=== PATIENT | female | born 1950 | race Caucasian/White ===

== ENCOUNTER 2020-09-13 16:21 | Inpatient (IN) ==
--- OUTSIDE RECORDS SUMMARY | 2020-09-13 16:24 | External Medical Summary | Continuity of Care Document ---
:1950 Author Name Gay Gómez Address Unavailable Unavailable , Care Team Providers Name Role Phone Unavailable Unavailable Unavailable Kristine Gómez Unavailable [email or web address], [email or web address] Unavailable Unavailable Unavailable Unavailable Unavailable Problems Hemiparesis (342.90) (G81.90) Benign essential hypertension (401.1) (I10) Depression (311) (F32.9) Type 2 diabetes mellitus (250.00) (E11.9) Seborrheic dermatitis of scalp (690.18) (L21.9) Gait disturbance (781.2) (R26.9) Mixed hyperlipidemia (272.2) (E78.2) Stroke syndrome Allergies and Adverse Reactions Amoxicillin TABS (Allergy) Penicillins (Allergy) Shellfish-derived Products (Allergy) Medications metFORMIN HCl - 500 MG Oral Tablet; TAKE 1 TABLET TWIC E DAILY. Rico Carmona Start: 29-Aug-2012 Quantity: 180 Refills: 1 Simvastatin 20 MG Oral Tablet; TAKE 1 TABLET DAILY AT BEDTIME. Rico Carmona Start: 29-Aug-2012 Quantity: 90 Refills: 1 Lisinopril-hydroCHLOROthiazide 20-12.5 MG Oral Tablet; TAKE 1 TABLET DAILY. Rico Carmnoa Start: 29-Aug-2012 Quantity: 90 Refills: 1 Clobetasol Propionate 0.05 % External So lution; APPLY AND GENTLY MASSAGE INTO AFFECTED AREA(S) TWICE DAILY. Rico Start: 29-Aug-2012 Refills: 0 Aspirin EC 81 MG Oral Tablet Delayed Release; TAKE 1 TABLET DAILYRico Velazquez Start: 29-Aug-2012 Quantity: 30 Refills: 5 Citalopram Hydrobromide 20 MG Oral Tablet; TAKE 1 TABL ET DAILY. Rico Carmona Start: 29-Aug-2012 Quantity: 90 Refills: 1 Procedures History of Aneurysm Repair Intracranial Simple Carotid Status: Completed Circulation Immunizations Influenza On: 29-Aug-2012 12:56 Lot #: [id number], [employer] Pneumococcal polysaccharide vaccine, 23 valent On: 3 15:57 Lot #: [id number], [employer] Social History - Smoking Status Ex-smoker Plan of Treatment Planned Observations Planned Goals not documented Results No Known Results Results not documented
[2020-09-13] MEDS ORDERED: DEXAMETHASONE SOD INJ 10 MG/ML VIAL IV ONE (16:36)
[2020-09-13] MEDS ORDERED: SODIUM CHLORIDE 0.9% 1000ML 500 ML IV ONE (16:36)
--- NOTE | 2020-09-13 16:41 | Emergency Department Note ---
Impression & Plan Acute respiratory failure with hypoxia, Weakness, COVID-19 ED Provider Note Provider: Nate Richard MD DATE OF SERVICE:09/13/2020 CHIEF COMPLAINT: Weakness fatigue HISTORY OF PRESENT ILLNESS: Patient is a 70-year-old female history of hypertension, hyperlipidemia, and diabetes presenting here today via ambulance from home due to weakness and shortness of breath. Patient states her symptoms started on approximately September 01 and have worsened significantly last several days significantly weak not eating and drinking much. Patient denies significant shortness of breath but says he is very weak and fatigued. Denies significant pain at this point. Reports he has been having fevers including today. Patient denies being tested for coronavirus but is concerned that she may have it. Denies any recent falls. Patient states she feels bit thirsty but does not have an appetite and has lost of taste and smell. EMS states they found the patient 78% on room air and on nonrebreather improved 90%. Her also came via ambulance for somewhat similar complaints. REVIEW OF SYSTEMS: A total of 10 review of systems was obtained and negative except as stated above in the HPI. PAST MEDICAL HISTORY: As noted above MEDICATIONS: Reviewed home medication list that comes the patient on aspirin SOCIAL HISTORY: Lives at home with , former smoker and glaucoma PHYSICAL EXAM: GENERAL: alert and oriented laying on stretcher appears significantly fatigued on a nonrebreather Head: normocephalic and atraumatic EYES: No injection, discharge or icterus. NECK: Trachea midline. Supple. ENT: Mucous membranes pink but slightly dry LUNGS: Airway patent. No retractions. Mild tachypnea. HEART: Regular rate and rhythm. No chest wall tenderness ABDOMEN: Soft and non-tender, without guarding or rebound. SKIN: Acyanotic, warm, dry, without rashes EXTREMITIES: Without swelling, tenderness or deformity NEUROLOGICAL: No focal deficits. No aphasia. No facial droop or slurred speech very weekend quiet speech. EK bpm normal sinus rhythm without PVC or PAC there is some baseline artifact on the EKG. No acute ST segment elevation noted with some inferior T wave inversions. Normal QTC QRS. CONTINUOUS CARDIAC MONITORING: was ordered and showed a heart rate of 92 bpm in normal sinus rhythm Patient's laboratory studies and imaging reviewed. Differential includes Infection, dehydration, metabolic abnormality, hypo/hyperglycemia, electrolyte disturbance, anemia, hypoxia, cardiac sources, intracerebral event, toxicologic, neurologic, as well as other pathologies. IMPRESSION/MEDICAL DECISION MAKING: Patient presents complaint weakness and fatigue found to be hypoxic. Significantly hypoxic on a nonrebreather 90% with some work of breathing and given this started on high flow oxygen. Covid test was sent as high suspicion. X-ray basic labs cultures lactate were sent. VBG was sent as well as type and screen. Given dexamethasone given high clinical suspicion for coronavirus and her significant respiratory oxygen requirement. Benign abdomen I doubt acute intra-abdominal catastrophe. D-dimer was sent as well as CRP for inflammatory markers. Given some fluid hydration via IV given her decreased intake. Afebrile here at this time upon initial evaluation. Chest x-ray with diffuse opacities per my review and radiology report for viral pneumonia. ABG without significant abnormality. Mild leukopenia of 2.15. No anemia. D-dimer is elevated and CTA will be ordered to evaluate for possible underlying PE. C-reactive protein mildly elevated. Lipase within normal limits thus without evidence of pancreatitis. Flu was negative. Troponin undetec table. A type and screen was sent for possible need for convalescent plasma given her illness. Patient was updated and more comfortable on the high flow oxygen but still satting around 90% on 40 L at 100%. Patient requires admission given her significant hypoxia related to coronavirus. Hospitalist team was contacted. DIAGNOSIS: Acute hypoxic respiratory failure, weakness, COVID-19 DISPOSITION: Hospitalist will evaluate for inpatient admission Patient was agreeable with this plan. Critical Care I have personally spent 40 minutes of critical care time in the direct management of this patient. This includes bedside care, interpretation of diagnostic studies, and testing, discussion with consultants, patient, and other required patient management activities. These 40 minutes is in excess of all separately billable procedures. Past Med/Surg History Medical History Cerebral aneurysm rupture 1998 s/p clipping Diabetes mellitus type 2, diet-controlled Hereditary hemochromatosis HLD (hyperlipidemia) HTN (hypertension) NAFLD (nonalcoholic fatty liver disease) Surgical History Hx of cholecystectomy Family History Mother Glaucoma Social History Smoking Status: Former smoker Hx Alcohol Use: No Feels Safe at Home: Yes Allergies Allergies Allergy/AdvReac Type Severity Reaction Status Date / Time shellfish derived Allergy Intermediate ithcing Verified 09/13/20 19:32 Penicillins Allergy Mild RASH, Verified 09/13/20 19:32 pruritis Home Meds Home Medications Medication Instructions Recorded Confirmed citalopram 20 mg PO DAILY 09/13/20 09/13/20 lisinopril 20 mg PO DAILY 09/13/20 09/13/20 Results & Data (ED) Vital Signs Vital Signs - 24 hr 09/13/20 16:27 09/13/20 16:45 09/13/20 16:59 Temperature 37.1 C Temperature Source Oral Pulse Rate 88 87 Pulse Rate [Apical] Pulse Rate from SpO2 Sensor 90 88 Respiratory Rate 24 23 Respiratory Effort / Characteristics Short of Breath Short of Breath Respiratory Depth Normal Normal Respiratory Pattern Regular Blood Pressure 152/89 H 132/76 Blood Pressure Mean 113 107 Blood Pressure Position Sitting Pulse Oximetry 90 93 Oxygen Delivery Method High Flow Nasal Cannula High Flow Nasal Cannula Oxygen Flow Rate 40 40 Fraction of Inspired Oxygen Sepsis Recent Fever Within 48 Hours No Sepsis New/Unexplained Change in Mental Status N/A Sepsis Action Taken by Nursing No Action Required 09/13/20 17:00 09/13/20 17:15 09/13/20 17:30 Temperature Temperature Source Pulse Rate 83 84 79 Pulse Rate [Apical] 80 Pulse Rate from SpO2 Sensor 83 82 79 Respiratory Rate 24 21 24 Respiratory Effort / Characteristics Spontaneous Respiratory Depth Respiratory Pattern Blood Pressure 137/70 119/77 123/65 Blood Pressure Mean 90 93 90 Blood Pressure Position Pulse Oximetry 89 L 91 91 Oxygen Delivery Method High Flow Nasal Cannula High Flow Nasal Cannula High Flow Nasal Cannula Oxygen Flow Rate 40 40 40 Fraction of Inspired Oxygen 100 Sepsis Recent Fever Within 48 Hours Sepsis New/Unexplained Change in Mental Status Sepsis Action Taken by Nursing 09/13/20 17:45 09/13/20 18:00 09/13/20 18:15 Temperature Temperature Source Pulse Rate 79 82 76 Pulse Rate [Apical] Pulse Rate from SpO2 Sensor 79 82 76 Respiratory Rate 24 20 19 Respiratory Effort / Characteristics Respiratory Depth Respiratory Pattern Blood Pressure 115/68 129/72 129/64 Blood Pressure Mean 82 98 82 Blood Pressure Position Pulse Oximetry 96 91 94 Oxygen Delivery Method High Flow Nasal Cannula High Flow Nasal Cannula High Flow Nasal Cannula Oxygen Flow Rate 40 40 40 Fraction of Inspired Oxygen Sepsis Recent Fever Within 48 Hours Sepsis New/Unexplained Change in Mental Status Sepsis Action Taken by Nursing 09/13/20 18:30 09/13/20 18:45 09/13/20 19:00 Temperature Temperature Source Pulse Rate 79 78 75 Pulse Rate [Apical] Pulse Rate from SpO2 Sensor 76 Respiratory Rate 23 24 22 Respiratory Effort / Characteristics Respiratory Depth Respiratory Pattern Blood Pressure 131/67 129/68 130/67 Blood Pressure Mean 89 91 98 Blood Pressure Position Pulse Oximetry 93 91 91 Oxygen Delivery Method High Flow Nasal Cannula High Flow Nasal Cannula High Flow Nasal Cannula Oxygen Flow Rate 40 40 40 Fraction of Inspired Oxygen Sepsis Recent Fever Within 48 Hours Sepsis New/Unexplained Change in Mental Status Sepsis Action Taken by Nursing 09/13/20 19:15 09/13/20 19:30 Temperature Temperature Source Pulse Rate 74 69 Pulse Rate [Apical] Pulse Rate from SpO2 Sensor 74 69 Respiratory Rate 22 21 Respiratory Effort / Characteristics Respiratory Depth Respiratory Pattern Blood Pressure 129/62 121/61 Blood Pressure Mean 75 82 Blood Pressure Position Pulse Oximetry 91 93 Oxygen Delivery Method High Flow Nasal Cannula High Flow Nasal Cannula Oxygen Flow Rate 40 40 Fraction of Inspired Oxygen Sepsis Recent Fever Within 48 Hours Sepsis New/Unexplained Change in Mental Status Sepsis Action Taken by Nursing Laboratory Data Result diagrams: 09/13/20 16:49 09/13/20 16:49 Lab Results 09/13/20 09/13/20 09/13/20 Range/Units 16:30 16:30 16:49 WBC 2.15 L (4.8-10.8) K/uL RBC 4.30 (4.2-5.4) M/uL Hgb 14.4 (12.0-16.0) g/dL Hct 41.9 (37-47) % MCV 97.4 (80-100) fL MCH 33.5 (25-34) pg MCHC 34.4 (32-36) g/dL RDW Std Deviation 47.9 H (36.4-46.3) fL RDW Coeff of Cristel 13.5 (11.5-14.5) % Plt Count 82 L (130-400) K/uL MPV 11.3 H (7.4-10.4) fL Immature Gran % (Auto) 0.0 % Neut % (Auto) 64.6 % Lymph % (Auto) 24.2 % [place] % (Auto) 10.7 % Eos % (Auto) 0.0 % Baso % (Auto) 0.5 % Neut # (Auto) 1.39 L (1.4-6.5) K/uL Lymph # (Auto) 0.52 L (1.2-3.4) K/uL [place] # (Auto) 0.23 (0.11-0.59) K/uL Eos # (Auto) 0.00 (0-0.5) K/uL Baso # (Auto) 0.01 (0-0.2) K/uL Immature Gran # (Auto) 0.00 (0.00-0.02) K/uL RBC Morphology Unremarkable PT (9.0-12.0) Seconds INR (0.9-1.1) D-Dimer (0-500) ug/L FEU VBG pH (7.36-7.41) VBG pCO2 (38-50) mmHg VBG pO2 mmHg VBG HCO3 mmol/L VBG O2 Saturation % VBG Base Excess mEq/L Barometric Pressure mm/Hg Sodium (136-145) mmol/L Potassium (3.5-5.1) mmol/L Chloride (98-107) mmol/L Carbon Dioxide (21-32) mmol/L Anion Gap (3-11) BUN (7-18) mg/dl Creatinine (0.6-1.2) mg/dl Est Cr Clr Drug Dosing Est GFR ( Amer) Est GFR (Non-Af Amer) BUN/Creatinine Ratio (10-20) Glucose (70-99) mg/dl Lactate (0.4-2.0) mmol/L Calcium (8.5-10.1) mg/dl Total Bilirubin (0.2-1) mg/dl AST (15-37) U/L ALT (12-78) U/L Alkaline Phosphatase (45-117) U/L Troponin I (0-0.045) ng/ml C-Reactive Protein (0-0.29) mg/dl NT-Pro-B Natriuret Pep (0-900) pg/ml Total Protein (6.4-8.2) gm/dl Albumin (3.4-5.0) gm/dl Globulin (2.5-4.0) gm/dl Albumin/Globulin Ratio (0.9-2) Lipase (73-393) U/L Procalcitonin (0-0.5) ng/ml COVID-19 Eval [facility] Influ A Molecular Assay (Negative) Influ B Molecular Assay (Negative) SARS-CoV-2, RNA, NAAT POSITIVE A* (NEGATIVE) Blood Type Antibody Screen Antibody Identification Antigen Identification 09/13/20 09/13/20 09/13/20 Range/Units 16:49 16:49 16:49 WBC (4.8-10.8) K/uL RBC (4.2-5.4) M/uL Hgb (12.0-16.0) g/dL Hct (37-47) % MCV (80-100) fL MCH (25-34) pg MCHC (32-36) g/dL RDW Std Deviation (36.4-46.3) fL RDW Coeff of Cristel (11.5-14.5) % Plt Count (130-400) K/uL MPV (7.4-10.4) fL Immature Gran % (Auto) % Neut % (Auto) % Lymph % (Auto) % [place] % (Auto) % Eos % (Auto) % Baso % (Auto) % Neut # (Auto) (1.4-6.5) K/uL Lymph # (Auto) (1.2-3.4) K/uL [place] # (Auto) (0.11-0.59) K/uL Eos # (Auto) (0-0.5) K/uL Baso # (Auto) (0-0.2) K/uL Immature Gran # (Auto) (0.00-0.02) K/uL RBC Morphology PT 11.8 (9.0-12.0) Seconds INR 1.1 (0.9-1.1) D-Dimer 1030 H* (0-500) ug/L FEU VBG pH (7.36-7.41) VBG pCO2 (38-50) mmHg VBG pO2 mmHg VBG HCO3 mmol/L VBG O2 Saturation % VBG Base Excess mEq/L Barometric Pressure mm/Hg Sodium 139 (136-145) mmol/L Potassium 3.7 (3.5-5.1) mmol/L Chloride 107 (98-107) mmol/L Carbon Dioxide 26 (21-32) mmol/L Anion Gap 5.0 (3-11) BUN 11 (7-18) mg/dl Creatinine 0.67 (0.6-1.2) mg/dl Est Cr Clr Drug Dosing Not Reportable Est GFR ( Amer) 101.8 Est GFR (Non-Af Amer) 87.8 BUN/Creatinine Ratio 16.3 (10-20) Glucose 128 H (70-99) mg/dl Lactate 1.8 (0.4-2.0) mmol/L Calcium 8.2 L (8.5-10.1) mg/dl Total Bilirubin 0.8 (0.2-1) mg/dl AST 73 H (15-37) U/L ALT 39 (12-78) U/L Alkaline Phosphatase 93 (45-117) U/L Troponin I < 0.015 (0-0.045) ng/ml C-Reactive Protein 2.35 H (0-0.29) mg/dl NT-Pro-B Natriuret Pep 136 (0-900) pg/ml Total Protein 6.4 (6.4-8.2) gm/dl Albumin 2.7 L (3.4-5.0) gm/dl Globulin 3.7 (2.5-4.0) gm/dl Albumin/Globulin Ratio 0.7 L (0.9-2) Lipase 216 (73-393) U/L Procalcitonin (0-0.5) ng/ml COVID-19 Eval Order Influ A Molecular Assay (Negative) Influ B Molecular Assay (Negative) SARS-CoV-2, RNA, NAAT (NEGATIVE) Blood Type Antibody Screen Antibody Identification Antigen Identification 09/13/20 09/13/20 09/13/20 Range/Units 16:49 16:49 16:52 WBC (4.8-10.8) K/uL RBC (4.2-5.4) M/uL Hgb (12.0-16.0) g/dL Hct (37-47) % MCV (80-100) fL MCH (25-34) pg MCHC (32-36) g/dL RDW Std Deviation (36.4-46.3) fL RDW Coeff of Cristel (11.5-14.5) % Plt Count (130-400) K/uL MPV (7.4-10.4) fL Immature Gran % (Auto) % Neut % (Auto) % Lymph % (Auto) % [place] % (Auto) % Eos % (Auto) % Baso % (Auto) % Neut # (Auto) (1.4-6.5) K/uL Lymph # (Auto) (1.2-3.4) K/uL [place] # (Auto) (0.11-0.59) K/uL Eos # (Auto) (0-0.5) K/uL Baso # (Auto) (0-0.2) K/uL Immature Gran # (Auto) (0.00-0.02) K/uL RBC Morphology PT (9.0-12.0) Seconds INR (0.9-1.1) D-Dimer (0-500) ug/L FEU VBG pH 7.44 H (7.36-7.41) VBG pCO2 38 (38-50) mmHg VBG pO2 60 mmHg VBG HCO3 25 mmol/L VBG O2 Saturation 90.5 % VBG Base Excess 1.4 mEq/L Barometric Pressure 740.3 mm/Hg Sodium (136-145) mmol/L Potassium (3.5-5.1) mmol/L Chloride (98-107) mmol/L Carbon Dioxide (21-32) mmol/L Anion Gap (3-11) BUN (7-18) mg/dl Creatinine (0.6-1.2) mg/dl Est Cr Clr Drug Dosing Est GFR ( Amer) Est GFR (Non-Af Amer) BUN/Creatinine Ratio (10-20) Glucose (70-99) mg/dl Lactate (0.4-2.0) mmol/L Calcium (8.5-10.1) mg/dl Total Bilirubin (0.2-1) mg/dl AST (15-37) U/L ALT (12-78) U/L Alkaline Phosphatase (45-117) U/L Troponin I (0-0.045) ng/ml C-Reactive Protein (0-0.29) mg/dl NT-Pro-B Natriuret Pep (0-900) pg/ml Total Protein (6.4-8.2) gm/dl Albumin (3.4-5.0) gm/dl Globulin (2.5-4.0) gm/dl Albumin/Globulin Ratio (0.9-2) Lipase (73-393) U/L Procalcitonin 0.24 (0-0.5) ng/ml COVID-19 Eval Order Influ A Molecular Assay Negative (Negative) Influ B Molecular Assay Negative (Negative) SARS-CoV-2, RNA, NAAT (NEGATIVE) Blood Type Antibody Screen Antibody Identification Antigen Identification 09/13/20 Range/Units 16:53 WBC (4.8-10.8) K/uL RBC (4.2-5.4) M/uL Hgb (12.0-16.0) g/dL Hct (37-47) % MCV (80-100) fL MCH (25-34) pg MCHC (32-36) g/dL RDW Std Deviation (36.4-46.3) fL RDW Coeff of Cristel (11.5-14.5) % Plt Count (130-400) K/uL MPV (7.4-10.4) fL Immature Gran % (Auto) % Neut % (Auto) % Lymph % (Auto) % [place] % (Auto) % Eos % (Auto) % Baso % (Auto) % Neut # (Auto) (1.4-6.5) K/uL Lymph # (Auto) (1.2-3.4) K/uL [place] # (Auto) (0.11-0.59) K/uL Eos # (Auto) (0-0.5) K/uL Baso # (Auto) (0-0.2) K/uL Immature Gran # (Auto) (0.00-0.02) K/uL RBC Morphology PT (9.0-12.0) Seconds INR (0.9-1.1) D-Dimer (0-500) ug/L FEU VBG pH (7.36-7.41) VBG pCO2 (38-50) mmHg VBG pO2 mmHg VBG HCO3 mmol/L VBG O2 Saturation % VBG Base Excess mEq/L Barometric Pressure mm/Hg Sodium (136-145) mmol/L Potassium (3.5-5.1) mmol/L Chloride (98-107) mmol/L Carbon Dioxide (21-32) mmol/L Anion Gap (3-11) BUN (7-18) mg/dl Creatinine (0.6-1.2) mg/dl Est Cr Clr Drug Dosing Est GFR ( Amer) Est GFR (Non-Af Amer) BUN/Creatinine Ratio (10-20) Glucose (70-99) mg/dl Lactate (0.4-2.0) mmol/L Calcium (8.5-10.1) mg/dl Total Bilirubin (0.2-1) mg/dl AST (15-37) U/L ALT (12-78) U/L Alkaline Phosphatase (45-117) U/L Troponin I (0-0.045) ng/ml C-Reactive Protein (0-0.29) mg/dl NT-Pro-B Natriuret Pep (0-900) pg/ml Total Protein (6.4-8.2) gm/dl Albumin (3.4-5.0) gm/dl Globulin (2.5-4.0) gm/dl Albumin/Globulin Ratio (0.9-2) Lipase (73-393) U/L Procalcitonin (0-0.5) ng/ml COVID-19 Eval Order Influ A Molecular Assay (Negative) Influ B Molecular Assay (Negative) SARS-CoV-2, RNA, NAAT (NEGATIVE) Blood Type A Positive Antibody Screen POSITIVE A Antibody Identification Anti-E Antigen Identification E Antigen - NEGATIVE Administered Medications Discontinued Medications Dexamethasone (Dexamethasone Sod Inj 10 Mg/Ml Vial) 6 mg IV NOW ONE Stop: 09/13/20 16:37 Last Admin: 09/13/20 16:48 Dose: 6 mg Documented by: [id number] Sodium Chloride (Nss 1000ml) 500 mls @ 999 mls/hr IV .Q31M ONE Stop: 09/13/20 17:06 Last Infusion: 09/13/20 17:19 Dose: 0 mls/hr Documented by: [id number] Admin: 09/13/20 16:48 Dose: 999 mls/hr Documented by: [id number] Ioversol (Optiray 320 125ml) 116 ml IV ONCE ONE Stop: 09/13/20 17:56 Last Admin: 09/13/20 17:55 Dose: 116 ml Documented by: [id number] Discharge Plan Visit Data Chief Complaint: Respiratory Problems Stated Complaint: ILLNESS, HYPOXIA, WEAK, LETHARGIC ED Provider: Nate Richard Discharge Problem: Acute respiratory failure with hypoxia, Weakness, COVID-19 Patient Disposition: Admitted As Inpatient Condition: Serious Forms Stand Alone Forms: My [facility] [employer] Prescriptions Prescriptions: No Action lisinopril 20 mg tablet 20 mg PO DAILY RF: 0 citalopram 20 mg tablet 20 mg PO DAILY RF: 0 Referrals Referrals: Kelechi Martino MD [Primary Care Provider] -
[2020-09-13 17:08] LABS: Base Excess VBG 1.4 mEq/L; Oxygen Saturation VBG 90.5 %; pH VBG 7.44 (7.36-7.41)
[2020-09-13 17:15] LABS: INR 1.1 (0.9-1.1); Prothrombin Time 11.8 Seconds (9.0-12.0)
[2020-09-13 17:17] LABS: Hematocrit (blood only) 41.9 % (37-47); Hemoglobin 14.4 g/dL (12.0-16.0); Mean Corpuscular Hemoglobin 33.5 pg (25-34); Mean Corpuscular Hgb Conc 34.4 g/dL (32-36); Mean Corpuscular Volume 97.4 fL (80-100); RDW Coefficient of Variation 13.5 % (11.5-14.5); RDW Standard Deviation 47.9 fL (36.4-46.3); White Blood Count 2.15 K/uL (4.8-10.8)
[2020-09-13 17:21] LABS: Alanine Aminotransferase 39 U/L (12-78); Albumin Level 2.7 gm/dl (3.4-5.0); Aspartate Aminotransferase 73 U/L (15-37); BUN Creatinine Ratio 16.3 (10-20); Blood Urea Nitrogen 11 mg/dl (7-18); C Reactive Protein 2.35 mg/dl (0-0.29); Calcium 8.2 mg/dl (8.5-10.1); Carbon Dioxide 26 mmol/L (21-32); Chloride 107 mmol/L (98-107); Est GFR (African American) 101.8; Est GFR (Non-African American) 87.8; Glucose 128 mg/dl (70-99); Lipase 216 U/L (73-393); Potassium 3.7 mmol/L (3.5-5.1); Sodium 139 mmol/L (136-145)
[2020-09-13 17:22] LABS: D Dimer 1030 ug/L FEU (0-500)
--- NOTE | 2020-09-13 17:22 | XRay Report ---
SINGLE VIEW CHEST CLINICAL HISTORY: Dyspnea. Atypical chest pain FINDINGS: An AP, portable, upright chest radiograph is obtained. No prior studies are available for c omparison at the time of dictation. The examination is degraded by portable technique and patient rot ation. The heart is enlarged noting atherosclerotic calcification of the thoracic aorta. There is mi ld pulmonary vascular congestion. There is multifocal bilateral airspace consolidation with a profoun dly subpleural distribution. Trace fluid is seen along the right minor fissure. Question trace pleura l effusions at the lung bases. No pneumothorax is seen. The skeletal structures are osteopenic. The b jonathan thorax is grossly intact. Cholecystectomy clips are noted in the right upper quadrant. IMPRESSION: 1. Cardiomegaly with mild pulmonary vascular congestion. 2. There is multifocal airspace consolidation with a predominantly subpleural distribution. Although some of this could represent mild pulmonary edema, an infectious/inflammatory process is favored. Cli nical correlation will be required. 3. Suspect trace pleural effusions. ACT 112: Negative or not required by law. Electronically signed by: Solis Oconnell M.D. 09/13/2020 5:21 PM
[2020-09-13 17:26] LABS: Albumin Globulin Ratio 0.7 (0.9-2); Alkaline Phosphatase 93 U/L (45-117); Bilirubin,Total 0.8 mg/dl (0.2-1); Globulin 3.7 gm/dl (2.5-4.0); Total Protein 6.4 gm/dl (6.4-8.2); Troponin I < 0.015 ng/ml (0-0.045)
[2020-09-13 17:26] LABS: Influenza A virus by PCR Negative (Negative)
[2020-09-13 17:27] LABS: Influenza B virus by PCR Negative (Negative)
[2020-09-13 17:48] LABS: Basophils # (auto) 0.01 K/uL (0-0.2); Basophils % (auto) 0.5 %; Lymphocytes # (auto) 0.52 K/uL (1.2-3.4); Lymphocytes % (auto) 24.2 %; Mean Platelet Volume 11.3 fL (7.4-10.4); Monocytes # (auto) 0.23 K/uL (0.11-0.59); Monocytes % (auto) 10.7 %; Neutrophils # (auto) 1.39 K/uL (1.4-6.5); Neutrophils % (auto) 64.6 %; Platelet Count 82 K/uL (130-400); RBC Morphology Unremarkable
[2020-09-13] MEDS ORDERED: OPTIRAY 320 125ml IV ONE (17:55)
[2020-09-13 19:18] LABS: NT Pro B Type Natriuretic Pept 136 pg/ml (0-900)
--- NOTE | 2020-09-13 20:31 | History & Physical Report ---
Date of Service September 13, 2020 Assessment & Plan (1) Pneumonia due to COVID-19 virus: Acute respiratory failure with hypoxia Covid pneumonia -Admit to PCU -Patient presenting from home with reports of generalized weakness, fatigue, worsening shortness of breath, loss of taste and smell x 12 days -In the ED, COVID-19 positive, CXR showing mild pulmonary vascular congestion and multifocal airspace consolidation -Currently requiring 100% high flow O2 to maintain saturation of 90% -IV dexamethasone, IV remdesivir; convalescent plasma (patient agreeable) -Lasix 20 mg IV after plasma infusion -Empiric doxycycline, Rocephin until cultures result -D-dimer elevated -check CTA and BL LE Doppler (2) HTN (hypertension): -Continue lisinopril (3) Diabetes mellitus type 2, diet-controlled: -Hgb A1c 5.9 04/2020 -NovoLog sliding scale while hospitalized and receiving IV steroids (4) Hereditary hemochromatosis: -Managed with intermittent phlebotomy -Hgb 14.4 (5) DVT prophylaxis: -SQ Lovenox History of Present Illness Chief Complaint: Shortness of breath, weakness Primary Care Provider: Kelechi Martino MD 70-year-old female with PMH diet-controlled DM type II, hereditary hemochromatosis, HLD, remote history of ruptured cerebral aneurysm s/p clipping, and other problems listed below who presents to the ED for evaluation of shortness of breath and generalized weakness. Patient reports that she has been sick for about the past 12 days. Symptoms have been progressively getting worse. She reports running low-grade fevers. She has had a very poor appetite with loss of sense and smell. No nausea, vomiting, diarrhea. She denies cough and sputum production. No chest pain or palpitations. Denies lightheadedness, dizziness, diaphoresis, syncopal events. No urinary symptoms. In the ED, patient has tested positive for COVID-19. She is currently requiring 100% high flow oxygen to maintain saturation of 90%. CXR shows mild pulmonary vascular congestion and multifocal airspace consolidation. D-dimer elevated, CTA chest pending. Patient was given dexamethasone 6 mg IV and IVF. Allergies Allergy/AdvReac Type Severity Reaction Status Date / Time shellfish derived Allergy Intermediate ithcing Verified 09/13/20 19:32 Penicillins Allergy Mild RASH, Verified 09/13/20 19:32 pruritis Home Medications Medication Instructions Recorded Confirmed Type citalopram 20 mg PO DAILY 09/13/20 09/13/20 History lisinopril 20 mg PO DAILY 09/13/20 09/13/20 History Past Med/Surg History Medical History Cerebral aneurysm rupture 1998 s/p clipping Diabetes mellitus type 2, diet-controlled Hereditary hemochromatosis HLD (hyperlipidemia) HTN (hypertension) NAFLD (nonalcoholic fatty liver disease) Surgical History Hx of cholecystectomy Family History Mother Glaucoma Social History Smoking Status: Never smoker Hx Alcohol Use: No Hx Substance Use: No Preferred Language: Uruguayan Communication Ability: Effective Security System Installer Required: No Beliefs That Will Affect Care: None Current Living Situation: Spouse Other Information That Helps Us Care for You: No Feels Safe at Home: Yes Safety Concerns: Feels Safe At This Time Review of Systems Review of Systems: ROS per HPI, all other systems reviewed and negative Physical Exam Constitutional: well developed, well nourished and + ill appearing; no acute distress Vitals as above Eyes: PERRL, conjunctivae normal, anicteric sclerae ENMT: Ears: no external ear abnormality Nose: no external nose abnormality Mouth: + dry oral mucous membranes Respiratory: normal respiratory effort; no respiratory distress Auscultation: + diminished lung sounds and + crackles (Bilateral bases) On 100% high flow O2 Cardiovascular: Rate/Rhythm: regular rate and regular rhythm Vessels: normal peripheral pulses Extremities: no edema Gastrointestinal (Abdomen): normal bowel sounds, soft, nontender, no hepato splenomegaly Musculoskeletal: no cyanosis or clubbing, extremities motor strength 5/5 Skin: no rashes, warm and dry Neurologic: PERRL, EOMI, accommodation nl, no face palsy, no dysarthria Difficulty speaking due to extreme fatigue Psychiatric: A+Ox3, euthymic affect Results & Data Results & Data ([facility]) Vital Signs (Past 12 Hours) Vital Signs Temp Pulse Pulse Resp BP Pulse Ox 09/13/20 19:30 69 21 121/61 93 09/13/20 19:15 74 22 129/62 91 09/13/20 19:00 75 22 130/67 91 09/13/20 18:45 78 24 129/68 91 09/13/20 18:30 79 23 131/67 93 09/13/20 18:15 76 19 129/64 94 09/13/20 18:00 82 20 129/72 91 09/13/20 17:45 79 24 115/68 96 09/13/20 17:30 79 24 123/65 91 09/13/20 17:15 84 21 119/77 91 09/13/20 17:00 83 80 24 137/70 89 L 09/13/20 16:45 87 23 132/76 93 09/13/20 16:27 37.1 C 88 24 152/89 H 90 Laboratory Results Short CBC 09/13/20 Range/Units 16:49 WBC 2.15 L (4.8-10.8) K/uL Hgb 14.4 (12.0-16.0) g/dL Hct 41.9 (37-47) % Plt Count 82 L (130-400) K/uL BMP 09/13/20 16:49 Sodium 139 Potassium 3.7 Chloride 107 Carbon Dioxide 26 BUN 11 Creatinine 0.67 Glucose 128 H Calcium 8.2 L Cardiac Enzymes 09/13/20 Range/Units 16:49 Troponin I < 0.015 (0-0.045) ng/ml Liver Function 09/13/20 Range/Units 16:49 Total Bilirubin 0.8 (0.2-1) mg/dl AST 73 H (15-37) U/L ALT 39 (12-78) U/L Alkaline Phosphatase 93 (45-117) U/L Albumin 2.7 L (3.4-5.0) gm/dl Diagnostic Findings CXR IMPRESSION: 1. Cardiomegaly with mild pulmonary vascular congestion. 2. There is multifocal airspace consolidation with a predominantly subpleural distribution. Although some of this could represent mild pulmonary edema, an infectious/inflammatory process is favored. Clinical correlation will be required. 3. Suspect trace pleural effusions. Code Status & VTE Plan Code Status Patient is a full code WITHOUT INTUBATION as per my discussion with her. VTE Prophylaxis Plan VTE Prophylaxis will be ordered: Yes Supervising Physician Co-Signing Physician Notes Patient is a 70-year-old female with history of diet-controlled diabetes mellitus, hereditary hemochromatosis managed with intermittent phlebotomy and ot her medical problems presents with history of significant generalized weakness, shortness of breath and cough since about 2 weeks duration. Also noted to have low-grade fevers. Patient currently is a poor historian secondary to respiratory distress. Patient is currently on high flow oxygen. Please review HPI for complete details of presentation. Chest CTA suggestive of multifocal bilateral airspace consolidation typical for multifocal pneumonia. Also noted mediastinal and hilar lymphadenopathy. Procalcitonin is within normal limits. Noted thrombocytopenia with platelet count at 82K. D-dimer is elevated at 1030. On exam patient is moderately built, nourished, mild respiratory distress, normocephalic atraumatic, lungs decreased breath sounds, basal crackles, no accessory muscle use, S1-S2, no murmur, no pedal edema, alert, awake, oriented, grossly no focal neurological deficits, abdomen soft, nontender, normal bowel sounds. Patient is admitted for management of acute respiratory failure secondary to Covid pneumonia. Agree with starting IV dexamethasone, remdesivir and patient agrees to convalescent plasma transfusion as well. Discussed with precision assembly inspector regional program manager. Check venous Dopplers to rule out DVT. Agree with empiric IV antibiotics. Continue oxygen support as needed. Monitor blood glucose levels while on IV steroids. Agree with insulin therapy while hospitali zed. Monitor platelet count while on Lovenox. Patient currently has conditional CODE STATUS. May need to readdress CODE STATUS if patient deteriorates clinically. I personally reviewed the record. Patient is interviewed and examined at bedside. Patient's care is coordinated with Shannon Cole INFORMATION SYSTEMS AUDIT MANAGER. Please refer to the documentation above for details of patient's presentation and for discussion of other issues.
--- NOTE | 2020-09-13 21:00 | CT Scan Report ---
CT ANGIOGRAM OF THE CHEST CLINICAL HISTORY: Hypoxia. Covid. COMPARISON STUDY: Chest x-ray dated 09/13/2020. TECHNIQUE: Following the IV administration of 116 cc of Optiray 320, CT angiogram of the chest was pe rformed from the upper abdomen to the thoracic inlet utilizing the pulmonary embolus protocol. Images are reviewed in the axial, sagittal, and coronal planes. 3-D MIPS images are created and assessed. I V contrast was administered without complication. A dose lowering technique was utilized adhering to the principles of ALARA. CT DOSE: 338.99 mGy.cm FINDINGS: Thyroid: Imaged portions of the thyroid gland are normal in size and attenuation. Thoracic aorta: There is atherosclerotic calcification of the thoracic aorta, which is normal in edouard loni and demonstrates standard 3-vessel arch anatomy. No dissection is seen. Pulmonary vasculature: The pulmonary trunk is normal in caliber. There are no filling defects identif ied in main, lobar, or segmental pulmonary branches to suggest pulmonary embolus. Heart: The heart is top normal in size and without pericardial effusion. The coronary arteries are de nsely calcified. Lungs and pleural spaces: Mild emphysematous change is noted. There is dense bibasilar airspace conso lidation. Patchy groundglass consolidation is seen throughout the remainder of both lungs. This is mo st confluent in a subpleural distribution. No pleural effusion is identified. The trachea and central airways are clear. Mediastinum: There are numerous mildly enlarged mediastinal lymph nodes. A prevascular node on image #142 measures 11 mm in short axis Candace: There are mildly enlarged hilar lymph nodes which measure up to 13 mm in short axis. Axillae: There is no axillary lymphadenopathy. Upper abdomen: There is a small hiatal hernia. Partially visualized upper abdominal viscera is within normal limits. Skeletal structures: The skeletal structures are osteopenic. Arthritic change is noted in the shoulde rs. No lytic or blastic bony lesions are seen. IMPRESSION: 1. There is no evidence of pulmonary embolus in the main, lobar, or segmental pulmonary arteries. 2. There is multifocal bilateral airspace consolidation as above typical for multifocal pneumonia. Ra diographic follow-up to resolution is recommended. 3. Mildly enlarged mediastinal and hilar lymph nodes are likely on a reactive basis. 4. Additional findings as above. ACT 112: Negative or not required by law. Electronically signed by: Solis Oconnell M.D. 09/13/2020 8:59 PM
[2020-09-13] MEDS ORDERED: DEXTROSE 50% 50 ML SYRINGE IV PRN (21:45)
[2020-09-13] MEDS ORDERED: CARBOHYDRATES FOR HYPOGLYCEMIA PO PRN (21:45)
[2020-09-13] MEDS ORDERED: ACETAMINOPHEN 325 MG TAB PO PRN (21:45)
[2020-09-13] MEDS ORDERED: GLUCAGON FOR INJ 1 MG VIAL SQ PRN (21:45)
[2020-09-13] MEDS ORDERED: GLUCOSE 40% GEL 15 GM TUBE PO PRN (21:45)
[2020-09-13] MEDS ORDERED: GLUCOSE 10 TABS/TUBE PO PRN (21:45)
[2020-09-13] MEDS ORDERED: FUROSEMIDE 40 MG/4 ML VIAL IV SCH (22:00)
[2020-09-13] MEDS ORDERED: SODIUM CHLORIDE 0.9% 10ML FLUSH IV ONE (22:15)
[2020-09-13] MEDS ORDERED: REMDESIVIR 200 MG in SODIUM CHLORIDE 0.9% 210 ML IV ONE (22:15)
[2020-09-13] MEDS: ENOXAPARIN INJ 40 MG/0.4 ML SYR SQ SCH (22:20)
[2020-09-13] MEDS ORDERED: ALBUTEROL HFA 8 GM INHALER INH PRN (22:38)
[2020-09-13] MEDS: INSULIN ASPART 100 UNITS/ML 3 ML PEN SC SCH (22:40)
[2020-09-13] MEDS: cefTRIAXone SODIUM 1,000 MG in DEXTROSE 5% 50 ML IV SCH (23:44)
[2020-09-14] MEDS: DOXYCYCLINE HYCLATE 100 MG CAP PO SCH ×3 (05:39→20:02)
[2020-09-14 06:52] LABS: Appearance Urine Clear (Clear); Bilirubin Urine Negative (Negative); Blood Urine Negative (Negative); Color Urine Dark Yellow; Glucose Urine UA Negative (Negative); Ketones Urine 1+ (Negative); Leukocyte Esterase Urine Negative (Negative); Nitrite Urine Negative (Negative); Protein Urine Negative (Negative); Specific Gravity Urine > 1.045 (1.000-1.030); Urobilinogen Urine Negative (Negative)
--- NOTE | 2020-09-14 07:50 | Ultrasound Report ---
BILATERAL LOWER EXTREMITY VENOUS DOPPLER HISTORY: elevated d dimer COMPARISON STUDY: None. FINDINGS: There is normal compressibility, flow, and augmentation within the bilateral lower extremit y deep venous systems. IMPRESSION: No DVT within the right or left lower extremity. ACT 112: Negative or not required by law. Electronically signed by: Joaquim Dickson M.D. 09/14/2020 7:48 AM
[2020-09-14 07:55] LABS: Hematocrit (blood only) 42.6 % (37-47); Hemoglobin 14.6 g/dL (12.0-16.0); Mean Corpuscular Hemoglobin 33.4 pg (25-34); Mean Corpuscular Hgb Conc 34.3 g/dL (32-36); Mean Corpuscular Volume 97.5 fL (80-100); RDW Coefficient of Variation 13.4 % (11.5-14.5); RDW Standard Deviation 47.6 fL (36.4-46.3); Red Blood Count 4.37 M/uL (4.2-5.4); White Blood Count 1.89 K/uL (4.8-10.8)
[2020-09-14 08:25] LABS: Mean Platelet Volume 11.3 fL (7.4-10.4); Platelet Count 91 K/uL (130-400)
[2020-09-14 08:30] LABS: BUN Creatinine Ratio 20.4 (10-20); Calcium 8.4 mg/dl (8.5-10.1); Creatinine Clr Calc Pharmacy 75.2 ml/min; Est GFR (African American) 102.8; Est GFR (Non-African American) 88.7; Magnesium 2.3 mg/dl (1.8-2.4); Potassium 3.8 mmol/L (3.5-5.1)
[2020-09-14 08:35] LABS: Ferritin 283.2 ng/ml (8-388)
[2020-09-14] MEDS ORDERED: CITALOPRAM 20 MG TAB PO SCH (09:00)
[2020-09-14] MEDS ORDERED: lisinopril 20 MG TAB PO SCH ×2 (09:00→20:00)
[2020-09-14] MEDS ORDERED: dexAMETHasone 6 MG in SYRINGE 0 ML IV SCH (09:00)
[2020-09-14 09:28] LABS: Estimated Average Glucose 128 mg/dl; Hemoglobin A1C 6.1 % (4.5-5.6)
[2020-09-14] MEDS: INSULIN ASPART 100 UNITS/ML 3 ML PEN SC SCH ×4 (10:01→21:14)
--- NOTE | 2020-09-14 16:25 | Pulmonary Consultation ---
Date of Consultation September 14, 2020 Assessment & Plan (1) Pneumonia due to COVID-19 virus: CT chest 09/13/2020: Lateral peripheral groundglass opacities appreciated along with some traction bronchiectasis and reticulation there is bilateral lower lobe consolidative process as well with bronchiectasis. I do not have previous CAT scan to compare but I think there is chronic lung changes/fibrosis in the patient. --Acute hypoxic respiratory failure Secondary to multilobar pneumonia COVID-19 +ve 09/13/2020 Positive lymphopenia, D-dimer 1030 Ferritin 283, CRP 2.35, procalcitonin 0.24 Mild elevation in AST. Continue with remdesivir for total of 5 days Dexamethasone for total of 10 days Given the dense consolidative process appreciated especially in the bilateral lower lobes I would continue with antibiotics for at least 5 days. Agree with Rocephin and doxycycline. Lovenox 40 mg once daily given the patient has thrombocytopenia --DNI Plan: Continue O2 supplementation to keep saturation between 88-92% Patient is not in any distress when it comes to her respiratory status. We will continue with high flow. Awake proning would be beneficial if patient is able to do it. BiPAP would be next step if the patient is in any distress. Incentive spirometry along with guaifenesin. If there is no clinical improvement in patient's oxygenation in the near future, echo with bubble study could be thought of to see if there is pulmonary hypertension with PFO. (It should be thought only if there is no improvement in the next 48-72 hours) Pulmonary will follow peripherally. Please call with any questions. Please note the above document was generated using voice recognition software. It may contain grammatical, syntax or spelling errors.Any formal questions or concerns about the content, text or information contained within the body of this dictation should be directly addressed to the provider for clarification. (2) Acute respiratory failure with hypoxia: (3) COVID-19: History of Present Illness Attending Physician: John Yañez MD History of Present Illness 70-year-old female past medical history of type 2 diabetes, hemochromatosis, dyslipidemia ruptured of cerebral aneurysm s/p clipping presented to the hospital with complaints of shortness of breath and generalized weakness. She had been sick for approximately a week. In the ED patient had COVID-19 test which came out to be positive. Pulmonary were consulted for COVID-19. At the time of examination in the room patient was saturating 91% 100% high flow at 40 L. I went down to 90% and the saturation still stayed at 91%. Patient was not in any acute distress. She was Breathing in the mid teens. Denied any chest pain, no headache, no dizziness, no nausea or vomiting She has been afebrile. Denies any dysuria, no diarrhea. Allergies Allergy/AdvReac Type Severity Reaction Status Date / Time shellfish derived Allergy Intermediate ithcing Verified 09/13/20 19:32 Penicillins Allergy Mild RASH, Verified 09/13/20 19:32 pruritis Home Medications Medication Instructions Recorded Confirmed Type citalopram 20 mg PO DAILY 09/13/20 09/13/20 History lisinopril 20 mg PO DAILY 09/13/20 09/13/20 History Patient History Medical History Cerebral aneurysm rupture 1998 s/p clipping Diabetes mellitus type 2, diet-controlled Hereditary hemochromatosis HLD (hyperlipidemia) HTN (hypertension) NAFLD (nonalcoholic fatty liver disease) Surgical History Hx of cholecystectomy Family History Mother Glaucoma Social History Smoking Status: Never smoker Hx Alcohol Use: No Hx Substance Use: No Preferred Language: Kenyan Communication Ability: Effective Lockstitcher Required: No Beliefs That Will Affect Care: None Current Living Situation: Spouse Other Information That Helps Us Care for You: No Feels Safe at Home: Yes Safety Concerns: Feels Safe At This Time Assistive Devices: Oxygen - Continuous Review of Systems Review of Systems: All systems reviewed & are unremarkable except as noted in HPI & below Physical Exam Physical Exam: Constitutional: No acute distress HEENT: EOMI, PERRLA Respiratory system: Decreased air entry bilaterally, no wheeze, no rhonchi, positive crackles bilaterally CVS: S1-S2 positive, no murmurs or gallops Abdomen: Soft, nontender, nondistended, positive bowel sounds x4 Extremities: +2 pulses bilaterally radialis/ dorsalis pedis, no cyanosis, no edema Neuro: Awake alert oriented x3 Psych: Normal mood and affect Skin: no rashes, warm and dry Lymphatic: no cervical or axillary lymphadenopathy Results & Data Results & Data ([facility]) Vital Signs (Past 12 Hours) Vital Signs Temp Pulse Pulse Resp BP Pulse Ox 09/14/20 16:10 74 09/14/20 15:21 36.8 C 71 123/74 88 L 09/14/20 11:38 36.5 C 68 24 125/79 87 L 09/14/20 09:47 69 18 93 09/14/20 09:25 36.6 C 64 24 135/79 83 L 09/14/20 08:14 36.9 C 84 20 115/73 98 09/14/20 08:00 62 09/14/20 04:42 36.7 C 60 24 138/75 93 09/14/20 07:03 09/14/20 07:03 PG Care Time/CCT Total # of Minutes Spent Total Time Spent with Patient: Total time spent is greater than 50% in coordination of care (as documented) at patient's floor/unit and/or counseling patient: Coding Level of Care Code 25551 Initial Inpt Care Lvl 3 Diagnoses Pneumonia due to COVID-19 virus U07.1; J12.89 Acute respiratory failure with hypoxia J96.01 COVID-19 U07.1
--- NOTE | 2020-09-14 16:26 | Hospitalist Progress Note ---
Date of Service September 14, 2020 Assessment & Plan (1) Pneumonia due to COVID-19 virus: Acute respiratory failure with hypoxia Covid pneumonia present on admission with worsening SOB CXR showed cardiomegaly with mild pulmonary vascular congestion. multifocal airspace consolidation with a predominantly subpleural distribution. CTA showed no evidence of pulmonary embolus in the main, lobar, or segmental pulmonary arteries. multifocal bilateral airspace consolidation as above typical for multifocal pneumonia. Continue IV dexamethasone, IV remdesivir Agreed for convalescent plasma, pending Will give Lasix 20 mg IV after plasma infusion Will monitor LFT while on remdesivir Pulmonology on board Continue Doxycycline and rocephin IV (2) HTN (hypertension): Continue lisinopril (3) Diabetes mellitus type 2, diet-controlled: Hgb A1c 6.1 on 09/13 On NovoLog sliding scale while hospitalized and receiving IV steroids Continue monitor BS (4) Hereditary hemochromatosis: Managed with intermittent phlebotomy Hgb 14.6 Stable (5) Elevated d-dimer: Mostly related to acute infection to COVID 19 Doppler of BLE showed no evidence of DVT CTA chest showed no evidence of PE (6) DVT prophylaxis: On SQ Lovenox Admission and Anticipated Discharge Date Admission Date: September 13, 2020 Subjective Pt was seen and examined Lying in bed with mild acute respiratory distress Pt said that her breathing slightly improves Denies any chest pain, palpitation, dizziness and fever Physical Exam Physical Exam: General- No acute distress Head- atraumatic Eyes- PERRL, EOMI, ENT- oropharynx clear Neck- supple, no JVD Lungs- diminished breath sound Heart- regular rhythm; no murmur Abdomen- normal bowel sounds, soft, nontender Extremities- no calf tenderness Neuro- alert, oriented x 3; PERRL, EOMI; no facial palsy; no dysarthria Skin- warm & dry Results & Data Results & Data ([facility]) Vital Signs (Past 12 Hours) Vital Signs Temp Pulse Pulse Resp BP Pulse Ox 09/14/20 16:10 74 09/14/20 15:21 36.8 C 71 123/74 88 L 09/14/20 11:38 36.5 C 68 24 125/79 87 L 09/14/20 09:47 69 18 93 09/14/20 09:25 36.6 C 64 24 135/79 83 L 09/14/20 08:14 36.9 C 84 20 115/73 98 09/14/20 08:00 62 09/14/20 04:42 36.7 C 60 24 138/75 93
[2020-09-14] MEDS ORDERED: FUROSEMIDE 40 MG/4 ML VIAL IV ONE (19:31)
[2020-09-14] MEDS: ENOXAPARIN INJ 40 MG/0.4 ML SYR SQ SCH (20:00)
[2020-09-14] MEDS: REMDESIVIR 100mg: Days 2-5 IV SCH (20:01)
[2020-09-14] MEDS: SODIUM CHLORIDE 0.9% 10ML FLUSH IV SCH (20:01)
[2020-09-14] MEDS: guaiFENesin 600 MG TABCR PO SCH (20:49)
--- NOTE | 2020-09-14 22:56 | Electrocardiogram Report ---
Test Reason : Blood Pressure : / mmHG Vent. Rate : 084 BPM Atrial Rate : 084 BPM P-R Int : 128 ms QRS Dur : 070 ms QT Int : 390 ms P-R-T Axes : 045 -45 -27 degrees QTc Int : 460 ms Normal sinus rhythm Left anterior fascicular block Minimal voltage criteria for LVH, may be normal variant Nonspecific ST and T wave abnormality Abnormal ECG No previous ECGs available Confirmed by Cheikh Esquivel ([id number]) on 09/14/2020 10:56:47 PM Referred By: REFERRED SELF Confirmed By:Cheikh Esquivel
[2020-09-14] MEDS: cefTRIAXone SODIUM 1,000 MG in DEXTROSE 5% 50 ML IV SCH (23:40)
[2020-09-15 07:02] LABS: Hematocrit (blood only) 42.3 % (37-47); Hemoglobin 14.2 g/dL (12.0-16.0); Mean Corpuscular Hemoglobin 33.1 pg (25-34); Mean Corpuscular Hgb Conc 33.6 g/dL (32-36); Mean Corpuscular Volume 98.6 fL (80-100); Mean Platelet Volume 11.4 fL (7.4-10.4); Platelet Count 114 K/uL (130-400); RDW Coefficient of Variation 13.6 % (11.5-14.5); RDW Standard Deviation 48.6 fL (36.4-46.3); Red Blood Count 4.29 M/uL (4.2-5.4)
[2020-09-15 07:20] LABS: Albumin Level 2.7 gm/dl (3.4-5.0); BUN Creatinine Ratio 31.2 (10-20); Calcium 8.1 mg/dl (8.5-10.1); Creatinine Clr Calc Pharmacy 74.6 ml/min; Est GFR (African American) 102.8; Est GFR (Non-African American) 88.7; Potassium 3.7 mmol/L (3.5-5.1)
[2020-09-15 07:23] LABS: Albumin Globulin Ratio 0.7 (0.9-2); Bilirubin,Total 0.6 mg/dl (0.2-1); C Reactive Protein 1.46 mg/dl (0-0.29); Globulin 3.9 gm/dl (2.5-4.0); Total Protein 6.6 gm/dl (6.4-8.2)
[2020-09-15] MEDS: guaiFENesin 600 MG TABCR PO SCH ×2 (08:50→19:51)
[2020-09-15] MEDS: CITALOPRAM 20 MG TAB PO SCH (08:50)
[2020-09-15] MEDS: dexAMETHasone 6 MG in SYRINGE 0 ML IV SCH (08:50)
[2020-09-15] MEDS: DOXYCYCLINE HYCLATE 100 MG CAP PO SCH ×2 (08:51→19:51)
[2020-09-15] MEDS: lisinopril 20 MG TAB PO SCH (08:52)
[2020-09-15] MEDS: INSULIN ASPART 100 UNITS/ML 3 ML PEN SC SCH ×4 (11:04→21:08)
[2020-09-15] MEDS ORDERED: FUROSEMIDE 20 MG in SYRINGE 0 ML IV ONE (19:00)
--- NOTE | 2020-09-15 19:16 | Hospitalist Progress Note ---
Date of Service September 15, 2020 Assessment & Plan (1) Pneumonia due to COVID-19 virus: Acute respiratory failure with hypoxia Covid pneumonia present on admission with worsening SOB CXR showed cardiomegaly with mild pulmonary vascular congestion. multifocal airspace consolidation with a predominantly subpleural distribution. CTA showed no evidence of pulmonary embolus in the main, lobar, or segmental pulmonary arteries. multifocal bilateral airspace consolidation as above typical for multifocal pneumonia. Continue IV dexamethasone, IV remdesivir S/P 1 unit convalescent plasma last night Hypoxia worsening, will place on Bipap with 12/8, 100% with back up rate of 20 If remains hypoxic after 30minutes, will change setting to 14/10 Continue monitor LFT while on remdesivir Pulmonology on board Continue Doxycycline and rocephin IV (2) HTN (hypertension): Continue lisinopril (3) Diabetes mellitus type 2, diet-controlled: Hgb A1c 6.1 on 09/13 On NovoLog sliding scale while hospitalized and receiving IV steroids Continue monitor BS (4) Hereditary hemochromatosis: Managed with intermittent phlebotomy Hgb 14.6 Stable (5) Elevated d-dimer: Mostly related to acute infection to COVID 19 Doppler of BLE showed no evidence of DVT CTA chest showed no evidence of PE (6) DVT prophylaxis: On SQ Lovenox Admission and Anticipated Discharge Date Admission Date: September 13, 2020 Subjective Pt was seen and examined Lying in bed with acute respiratory distress Pt continues to struggle to breath She said that her breathing slightly improves She received the convalescent plasma last night Denies any chest pain and fever Physical Exam Physical Exam: General- No acute distress Head- atraumatic Eyes- PERRL, EOMI, ENT- oropharynx clear Neck- supple, no JVD Lungs- diminished breath sound Heart- regular rhythm; no murmur Abdomen- normal bowel sounds, soft, nontender Extremities- no calf tenderness Neuro- alert, oriented x 3; PERRL, EOMI; no facial palsy; no dysarthria Skin- warm & dry Results & Data Results & Data ([facility]) Vital Signs (Past 12 Hours) Vital Signs Temp Pulse Pulse Resp BP Pulse Ox 09/15/20 16:19 36.5 C 72 24 129/77 79 L 09/15/20 16:00 65 09/15/20 15:19 67 22 92 11/22/20 12:21 36.4 C L 69 20 135/73 84 L 09/15/20 11:34 63 20 92 09/15/20 08:53 36.6 C 60 20 144/79 H 85 L 09/15/20 08:00 57 L 09/15/20 07:57 67 20 90
[2020-09-15] MEDS: ENOXAPARIN INJ 40 MG/0.4 ML SYR SQ SCH (19:50)
[2020-09-15] MEDS: REMDESIVIR 100mg: Days 2-5 IV SCH (19:50)
[2020-09-15] MEDS: SODIUM CHLORIDE 0.9% 10ML FLUSH IV SCH (19:53)
[2020-09-15] MEDS: cefTRIAXone SODIUM 1,000 MG in DEXTROSE 5% 50 ML IV SCH (23:15)
[2020-09-16 06:58] LABS: Creatinine Clr Calc Pharmacy 64.9 ml/min; Est GFR (African American) 92.3; Est GFR (Non-African American) 79.6
[2020-09-16] MEDS: dexAMETHasone 6 MG in SYRINGE 0 ML IV SCH (08:14)
[2020-09-16] MEDS: DOXYCYCLINE HYCLATE 100 MG CAP PO SCH ×2 (08:14→20:06)
[2020-09-16] MEDS: lisinopril 20 MG TAB PO SCH (08:15)
[2020-09-16] MEDS: CITALOPRAM 20 MG TAB PO SCH (08:15)
[2020-09-16] MEDS: guaiFENesin 600 MG TABCR PO SCH ×2 (08:15→20:06)
[2020-09-16] MEDS: INSULIN ASPART 100 UNITS/ML 3 ML PEN SC SCH ×4 (08:28→21:11)
--- NOTE | 2020-09-16 18:32 | Hospitalist Progress Note ---
Date of Service September 16, 2020 Assessment & Plan (1) Pneumonia due to COVID-19 virus: Acute respiratory failure with hypoxia Covid pneumonia present on admission with worsening SOB CXR showed cardiomegaly with mild pulmonary vascular congestion. multifocal airspace consolidation with a predominantly subpleural distribution. CTA showed no evidence of pulmonary embolus in the main, lobar, or segmental pulmonary arteries. multifocal bilateral airspace consolidation as above typical for multifocal pneumonia. Continue IV dexamethasone, IV remdesivir S/P 1 unit convalescent plasma on 09/14 Hypoxia worsening, will place on Bipap with 12/8, 100% with back up rate of 20 If remains hypoxic on bipap 12/8 after 30minutes, will change setting to 14/10 Continue monitor LFT while on remdesivir Pulmonology on board Continue Doxycycline and Rocephin IV Pt continues decline any mechanical ventilation/intubation in case her breathing worsening, aware (2) HTN (hypertension): Continue lisinopril (3) Diabetes mellitus type 2, diet-controlled: Hgb A1c 6.1 on 09/13 On NovoLog sliding scale while hospitalized and receiving IV steroids Continue monitor BS (4) Hereditary hemochromatosis: Managed with intermittent phlebotomy Hgb 14.6 Stable (5) Elevated d-dimer: Mostly related to acute infection to COVID 19 Doppler of BLE showed no evidence of DVT CTA chest showed no evidence of PE (6) DVT prophylaxis: On SQ Lovenox Disposition requests update at [phone] Admission and Anticipated Discharge Date Admission Date: September 13, 2020 Subjective Pt was seen and examined Lying in bed continue to be in respiratory distress Pt said that she feels a little better She said that she is not coughing anything She said that she was not able to tolerate the Bipap for too long last night Pt [phone]) was updated and answered all his questions I informed the that as per pt wish she does not want any mechanical ventilation/intubated Denies any chest pain, palpitation, fever and dizziness Physical Exam Physical Exam: General- No acute distress Head- atraumatic Eyes- PERRL, EOMI, ENT- oropharynx clear Neck- supple, no JVD Lungs- diminished breath sound Heart- regular rhythm; no murmur Abdomen- normal bowel sounds, soft, nontender Extremities- no calf tenderness Neuro- alert, oriented x 3; PERRL, EOMI; no facial palsy; no dysarthria Skin- warm & dry Results & Data Results [facility] Vital Signs (Past 12 Hours) Vital Signs Temp Pulse Pulse Resp BP Pulse Ox 09/16/20 16:08 36.4 C L 60 16 144/82 H 88 L 09/16/20 16:00 63 09/16/20 15:30 20 91 09/16/20 11:33 56 L 17 92 09/16/20 11:06 36.6 C 60 18 129/75 88 L 09/16/20 08:01 36.5 C 57 L 22 135/62 91 09/16/20 08:00 54 L
[2020-09-16] MEDS: ENOXAPARIN INJ 40 MG/0.4 ML SYR SQ SCH (20:05)
[2020-09-16] MEDS: REMDESIVIR 100mg: Days 2-5 IV SCH (20:08)
[2020-09-16] MEDS: SODIUM CHLORIDE 0.9% 10ML FLUSH IV SCH (20:08)
[2020-09-16] MEDS: cefTRIAXone SODIUM 1,000 MG in DEXTROSE 5% 50 ML IV SCH (23:51)
[2020-09-17 06:50] LABS: Est GFR (African American) 100.3; Est GFR (Non-African American) 86.6
--- NOTE | 2020-09-17 08:42 | XRay Report ---
SINGLE VIEW CHEST CLINICAL HISTORY: Covid pneumonia FINDINGS: An AP, portable, upright chest radiograph is compared to chest x-ray and chest CT dated . The examination is degraded by portable technique and patient rotation. The heart is enlarg ed noting atherosclerotic calcification of the thoracic aorta. . Again seen is multifocal airspace co nsolidation with a predominantly subpleural distribution Trace fluid is again noted along the right m inor fissure. Question trace pleural effusions at the lung bases. No pneumothorax is seen. The skelet al structures are osteopenic. The bony thorax is grossly intact. Cholecystectomy clips are noted in t he right upper quadrant. IMPRESSION: 1. There has been no significant change in multifocal airspace consolidation with a predominantly sub pleural distribution. 2. Suspect trace pleural effusions. ACT 112: Negative or not required by law. Electronically signed by: Solis Oconnell M.D. 09/17/2020 8:40 AM
[2020-09-17 08:54] LABS: Potassium 3.8 mmol/L (3.5-5.1)
[2020-09-17] MEDS: guaiFENesin 600 MG TABCR PO SCH ×2 (08:59→20:36)
[2020-09-17] MEDS: DOXYCYCLINE HYCLATE 100 MG CAP PO SCH ×2 (08:59→20:36)
[2020-09-17] MEDS: CITALOPRAM 20 MG TAB PO SCH (08:59)
[2020-09-17] MEDS: lisinopril 20 MG TAB PO SCH (09:00)
[2020-09-17 09:03] LABS: Albumin Level 2.6 gm/dl (3.4-5.0); Bilirubin Direct 0.2 mg/dl (0-0.2); Bilirubin,Total 0.7 mg/dl (0.2-1); C Reactive Protein 0.61 mg/dl (0-0.29); Total Protein 6.6 gm/dl (6.4-8.2)
[2020-09-17] MEDS: dexAMETHasone 6 MG in SYRINGE 0 ML IV SCH (09:09)
[2020-09-17] MEDS: INSULIN ASPART 100 UNITS/ML 3 ML PEN SC SCH ×4 (09:33→20:37)
--- NOTE | 2020-09-17 20:29 | Hospitalist Progress Note ---
Date of Service September 17, 2020 Assessment & Plan (1) Pneumonia due to COVID-19 virus: Acute respiratory failure with hypoxia Covid pneumonia present on admission with worsening SOB CXR showed cardiomegaly with mild pulmonary vascular congestion. multifocal airspace consolidation with a predominantly subpleural distribution. CTA showed no evidence of pulmonary embolus in the main, lobar, or segmental pulmonary arteries. multifocal bilateral airspace consolidation as above typical for multifocal pneumonia. Continue IV dexamethasone, IV remdesivir S/P 1 unit convalescent plasma on 09/14 Hypoxia worsening, will place on Bipap with 12/8, 100% with back up rate of 20 If remains hypoxic on bipap 12/8 after 30minutes, will change setting to 14/10 Continue monitor LFT while on remdesivir Inflammatory marker trending down Pulmonology on board Continue Doxycycline and Rocephin IV Pt continues decline any mechanical ventilation/intubation in case her breathing worsening, aware (2) HTN (hypertension): Continue lisinopril (3) Diabetes mellitus type 2, diet-controlled: Hgb A1c 6.1 on 09/13 On NovoLog sliding scale while hospitalized and receiving IV steroids Continue monitor BS (4) Hereditary hemochromatosis: Managed with intermittent phlebotomy Hgb 14.6 Stable (5) Elevated d-dimer: Mostly related to acute infection to COVID 19 Doppler of BLE showed no evidence of DVT CTA chest showed no evidence of PE (6) DVT prophylaxis: On SQ Lovenox Disposition requests update at [phone] Admission and Anticipated Discharge Date Admission Date: September 13, 2020 Subjective Pt was seen and examined Lying in bed with respiratory distress Continue to require oxygen supplement She said that her breathing feels much better Denies any chest pain, palpitation, dizziness and fever Physical Exam Physical Exam: General- No acute distress Head- atraumatic Eyes- PERRL, EOMI, ENT- oropharynx clear Neck- supple, no JVD Lungs- diminished breath sound Heart- regular rhythm; no murmur Abdomen- normal bowel sounds, soft, nontender Extremities- no calf tenderness Neuro- alert, oriented x 3; PERRL, EOMI; no facial palsy; no dysarthria Skin- warm & dry Results & Data Results & Data ([facility]) Vital Signs (Past 12 Hours) Vital Signs Temp Pulse Pulse Resp BP Pulse Ox 09/17/20 17:00 36.6 C 60 20 161/75 H 90 09/17/20 16:00 61 09/17/20 15:16 74 20 86 L 09/17/20 11:47 61 18 89 L 09/17/20 11:40 36.9 C 70 22 125/73 88 L 09/17/20 09:00 57 L
[2020-09-17] MEDS: REMDESIVIR 100mg: Days 2-5 IV SCH (20:34)
[2020-09-17] MEDS: SODIUM CHLORIDE 0.9% 10ML FLUSH IV SCH (20:35)
[2020-09-17] MEDS: ENOXAPARIN INJ 40 MG/0.4 ML SYR SQ SCH (20:36)
[2020-09-18] MEDS: cefTRIAXone SODIUM 1,000 MG in DEXTROSE 5% 50 ML IV SCH (00:38)
[2020-09-18 06:16] LABS: Hematocrit (blood only) 40.8 % (37-47); Hemoglobin 14.6 g/dL (12.0-16.0); Mean Corpuscular Hgb Conc 35.8 g/dL (32-36); Mean Corpuscular Volume 97.8 fL (80-100); Mean Platelet Volume 11.3 fL (7.4-10.4); Platelet Count 112 K/uL (130-400); RDW Coefficient of Variation 13.3 % (11.5-14.5); RDW Standard Deviation 47.5 fL (36.4-46.3); Red Blood Count 4.17 M/uL (4.2-5.4); White Blood Count 7.03 K/uL (4.8-10.8)
[2020-09-18 06:48] LABS: Creatinine Clr Calc Pharmacy 73.3 ml/min; Est GFR (African American) 102.3; Est GFR (Non-African American) 88.3
[2020-09-18] MEDS: lisinopril 20 MG TAB PO SCH (08:29)
[2020-09-18] MEDS: guaiFENesin 600 MG TABCR PO SCH ×2 (08:29→19:54)
[2020-09-18] MEDS: CITALOPRAM 20 MG TAB PO SCH (08:29)
[2020-09-18] MEDS: DOXYCYCLINE HYCLATE 100 MG CAP PO SCH ×2 (08:30→19:54)
[2020-09-18] MEDS: dexAMETHasone 6 MG in SYRINGE 0 ML IV SCH (08:41)
[2020-09-18] MEDS: INSULIN ASPART 100 UNITS/ML 3 ML PEN SC SCH ×4 (09:20→21:40)
--- NOTE | 2020-09-18 18:12 | Hospitalist Progress Note ---
Date of Service September 18, 2020 Assessment & Plan (1) Pneumonia due to COVID-19 virus: Acute respiratory failure with hypoxia due to Covid 19 pneumonia remains persistently hypoxic requiring High flow 02 present on admission with worsening SOB CXR showed cardiomegaly with mild pulmonary vascular congestion. multifocal airspace consolidation with a predominantly subpleural distribution. CTA showed no evidence of pulmonary embolus in the main, lobar, or segmental pulmonary arteries. multifocal bilateral airspace consolidation as above typical for multifocal pneumonia. Continue IV dexamethasone for 10 days , completed IV remdesivir S/P 1 unit convalescent plasma on 09/14 Inflammatory marker trending down Pulmonology on board Continue Doxycycline and Rocephin IV for possible underlying community acquired pnemonia Pt declined any mechanical ventilation/intubation in case her breathing worsening, code status DNI (2) HTN (hypertension): Continue lisinopril (3) Diabetes mellitus type 2, diet-controlled: Hgb A1c 6.1 on 09/13 On NovoLog sliding scale while hospitalized and receiving IV steroids Continue monitor BS (4) Hereditary hemochromatosis: Managed with intermittent phlebotomy Hgb 14.6 Stable (5) Elevated d-dimer: Mostly related to acute infection to COVID 19 Doppler of BLE showed no evidence of DVT CTA chest showed no evidence of PE (6) DVT prophylaxis: On SQ Lovenox Disposition continue to monitor in PCU for respiratory failure PT/OT eval when clinically improved Admission and Anticipated Discharge Date Admission Date: September 13, 2020 Subjective Follow up visit for respiratory failure /COVID 19 pneumonia Lying in bed with on sign of respiratory distress Continue to require high flow oxygen supplement She said that her breathing feels much better having dry non productive cough afebrile Review of Systems Review of Systems: All systems reviewed & are unremarkable except as noted in HPI & below Respiratory: + cough and + problem reported (hypoxia on high flow 02 ) Physical Exam Constitutional: + ill appearing Eyes: + anicteric sclerae ENMT: external ear and nose normal, oropharynx normal Neck: trachea midline, no thyromegaly Respiratory: + cough Cardiovascular: RRR, no murmur, no edema Gastrointestinal (Abdomen): normal bowel sounds, soft, nontender, no hepatosplenomegaly Musculoskeletal: no cyanosis or clubbing, extremities motor strength 5/5 Neurologic: PERRL, EOMI, accommodation nl, no face palsy, no dysarthria + abnormal deep tendon reflexes Psychiatric: Orientation: alert and oriented x 3 Affect: + flat affect Results & Data Results & Data ([facility]) Vital Signs (Past 12 Hours) Vital Signs Temp Pulse Pulse Pulse Resp BP Pulse Ox 09/18/20 16:00 61 09/18/20 15:59 36.5 C 60 23 126/69 88 L 09/18/20 15:24 60 18 90 09/18/20 11:45 36.8 C 76 24 157/81 H 89 L 09/18/20 11:08 67 18 89 L 09/18/20 08:00 36.5 C 61 64 22 147/78 H 88 L 09/18/20 06:41 64 26 H 89 L
[2020-09-18] MEDS: ENOXAPARIN INJ 40 MG/0.4 ML SYR SQ SCH (19:52)
[2020-09-19] MEDS: cefTRIAXone SODIUM 1,000 MG in DEXTROSE 5% 50 ML IV SCH (00:36)
[2020-09-19] MEDS: CITALOPRAM 20 MG TAB PO SCH (08:25)
[2020-09-19] MEDS: DOXYCYCLINE HYCLATE 100 MG CAP PO SCH ×2 (08:25→21:48)
[2020-09-19] MEDS: dexAMETHasone 6 MG in SYRINGE 0 ML IV SCH (08:25)
[2020-09-19] MEDS: lisinopril 20 MG TAB PO SCH (08:25)
[2020-09-19] MEDS: guaiFENesin 600 MG TABCR PO SCH ×2 (08:25→21:48)
[2020-09-19] MEDS: INSULIN ASPART 100 UNITS/ML 3 ML PEN SC SCH ×4 (09:15→21:17)
--- NOTE | 2020-09-19 14:46 | Hospitalist Progress Note ---
Date of Service September 19, 2020 Assessment & Plan (1) Pneumonia due to COVID-19 virus: Acute respiratory failure with hypoxia due to Covid 19 pneumonia requiring high flow 02 , will start to wean down plan is to gradual transition to nasal canula in next 24-48 hrs present on admission with worsening SOB CXR showed cardiomegaly with mild pulmonary vascular congestion. multifocal airspace consolidation with a predominantly subpleural distribution. CTA showed no evidence of pulmonary embolus in the main, lobar, or segmental pulmonary arteries. multifocal bilateral airspace consolidation as above typical for multifocal pneumonia. Continue IV dexamethasone for 10 days , completed IV remdesivir S/P 1 unit convalescent plasma on 09/14 Inflammatory marker trending down Pulmonology on board Continue Doxycycline and Rocephin IV for possible underlying community acquired pneumonia Pt declined any mechanical ventilation/intubation code status DNI (2) HTN (hypertension): Continue lisinopril (3) Diabetes mellitus type 2, diet-controlled: Hgb A1c 6.1 on 09/13 On NovoLog sliding scale while hospitalized and receiving IV steroids Continue monitor BS (4) Hereditary hemochromatosis: Managed with intermittent phlebotomy Hgb 14.6 Stable (5) Elevated d-dimer: Mostly related to acute infection to COVID 19 Doppler of BLE showed no evidence of DVT CTA chest showed no evidence of PE (6) DVT prophylaxis: On SQ Lovenox Disposition continue to monitor in PCU for respiratory failure PT/OT eval when clinically improved /off from high flow 02 Admission and Anticipated Discharge Date Admission Date: September 13, 2020 Subjective Follow up visit for respiratory failure /COVID 19 pneumonia pt reports breathing much better today ' has persisted non productive cough on High flow 02 Spo2 100 % will start to wean down 02 to keep spo2 95 % Review of Systems Review of Systems: All systems reviewed & are unremarkable except as noted in HPI & below Respiratory: + cough Physical Exam Constitutional: + ill appearing Eyes: + anicteric sclerae ENMT: external ear and nose normal, oropharynx normal Neck: trachea midline, no thyromegaly Respiratory: + cough Cardiovascular: RRR, no murmur, no edema Gastrointestinal (Abdomen): normal bowel sounds, soft, nontender, no hepatosplenomegaly Musculoskeletal: no cyanosis or clubbing, extremities motor strength 5/5 Neurologic: PERRL, EOMI, accommodation nl, no face palsy, no dysarthria + abnormal deep tendon reflexes Psychiatric: A+Ox3, euthymic affect Results & Data Results & Data ([facility]) Vital Signs (Past 12 Hours) Vital Signs Temp Pulse Pulse Resp BP Pulse Ox 09/19/20 11:39 36.6 C 68 23 131/76 91 09/19/20 11:35 62 18 91 09/19/20 08:24 67 24 90 09/19/20 08:10 36.7 C 66 20 150/78 H 89 L 09/19/20 08:00 63 09/19/20 03:52 36.4 C L 59 L 19 152/90 H 91
[2020-09-19] MEDS: ENOXAPARIN INJ 40 MG/0.4 ML SYR SQ SCH (21:49)
[2020-09-20] MEDS: cefTRIAXone SODIUM 1,000 MG in DEXTROSE 5% 50 ML IV SCH ×2 (00:03→23:31)
[2020-09-20] MEDS: guaiFENesin 600 MG TABCR PO SCH ×2 (07:26→21:16)
[2020-09-20] MEDS: DOXYCYCLINE HYCLATE 100 MG CAP PO SCH (07:26)
[2020-09-20] MEDS: CITALOPRAM 20 MG TAB PO SCH (07:26)
[2020-09-20] MEDS: lisinopril 20 MG TAB PO SCH (07:26)
[2020-09-20] MEDS: dexAMETHasone 6 MG in SYRINGE 0 ML IV SCH (07:28)
[2020-09-20] MEDS: INSULIN ASPART 100 UNITS/ML 3 ML PEN SC SCH ×4 (07:45→21:24)
--- NOTE | 2020-09-20 14:47 | Hospitalist Progress Note ---
Date of Service September 20, 2020 Assessment & Plan (1) Pneumonia due to COVID-19 virus: Acute respiratory failure with hypoxia due to Covid 19 pneumonia remains persistently hypoxic requiring high flow 02 , unable to wean down CXR showed cardiomegaly with mild pulmonary vascular congestion. multifocal airspace consolidation with a predominantly subpleural distribution. ordered for repeat Cxray CTA showed no evidence of pulmonary embolus in the main, lobar, or segmental pulmonary arteries. multifocal bilateral airspace consolidation as above typical for multifocal pneumonia. Continue IV dexamethasone for 10 days , completed IV remdesivir S/P 1 unit convalescent plasma on 09/14 Pulmonology on board Continue Doxycycline and Rocephin IV for possible underlying community acquired pneumonia Pt declined any mechanical ventilation/intubation code status DNI D/w Pulmonology -recommends prone ventilation ordered for daily Prone ventilation as tolerated hold Prone ventilation if pt is nauseous to prevent aspiration will continue supportive care (2) HTN (hypertension): Continue lisinopril BP has been stable (3) Diabetes mellitus type 2, diet-controlled: Hgb A1c 6.1 on 09/13 On NovoLog sliding scale while hospitalized and receiving IV steroids Continue monitor BS (4) Hereditary hemochromatosis: Managed with intermittent phlebotomy Hgb 14.6 Stable (5) Elevated d-dimer: Mostly related to acute infection to COVID 19 Doppler of BLE showed no evidence of DVT CTA chest showed no evidence of PE (6) DVT prophylaxis: On SQ Lovenox Disposition continue to monitor in PCU for respiratory failure update given to SOn over phone contact : Wyatt Toussaint : phone # [phone] Admission and Anticipated Discharge Date Admission Date: September 13, 2020 Subjective Follow up visit for acute hypoxemic respiratory failure /due to covid 19 pneumonia pt remains hypoxic on High flow 02 desaturates with attempt to wean off felt nauseous earlier , with episode of vomiting no N/v now pt feels she can breath better while sitting up discussed prone ventilation option -willing to try Review of Systems Review of Systems: All systems reviewed & are unremarkable except as noted in HPI & below Respiratory: + cough and + dyspnea Physical Exam Constitutional: + ill appearing Eyes: + anicteric sclerae ENMT: external ear and nose normal, oropharynx normal Neck: trachea midline, no thyromegaly Respiratory: + cough Cardiovascular: RRR, no murmur, no edema Gastrointestinal (Abdomen): normal bowel sounds, soft, nontender, no hepatosplenomegaly Musculoskeletal: no cyanosis or clubbing, extremities motor strength 5/5 Neurologic: PERRL, EOMI, accommodation nl, no face palsy, no dysarthria + abnormal deep tendon reflexes Psychiatric: A+Ox3, euthymic affect Orientation: alert and oriented x 3 Affect: + flat affect Results & Data Results & Data ([facility]) Vital Signs (Past 12 Hours) Vital Signs Temp Pulse Pulse Resp BP Pulse Ox 09/20/20 12:09 36.8 C 63 18 126/62 90 09/20/20 12:04 76 22 91 09/20/20 07:38 69 22 88 L 09/20/20 07:08 37.0 C 62 22 131/77 88 L 09/20/20 05:34 61 31 H 89 L 09/20/20 03:01 53 L 23 90
--- NOTE | 2020-09-20 15:19 | XRay Report ---
SINGLE VIEW CHEST CLINICAL HISTORY: Hypoxia. Covid pneumonia. FINDINGS: 2 AP, portable, upright chest radiographs are compared to study dated 09/17/2020. The heart is top normal for projection noting atherosclerotic calcification of the thoracic aorta. Multifocal bilateral airspace consolidation has modestly increased as compared to 09/17/2020. No large pleural e ffusion or pneumothorax is seen. The skeletal structures are osteopenic. The bony thorax is grossly i ntact. Degenerative change is noted in the shoulders. Cholecystectomy clips are seen in the right upp er quadrant. IMPRESSION: Multifocal bilateral airspace consolidation has increased from 09/17/2020. ACT 112: Negative or not required by law. Electronically signed by: Solis Oconnell M.D. 09/20/2020 3:18 PM
--- NOTE | 2020-09-20 17:47 | Pulmonology Progress Note ---
Date of Service September 20, 2020 Assessment & Plan (1) Pneumonia due to COVID-19 virus: Impression: 70-year-old female with COVID-19 pneumonia and hypoxemic respiratory failure. She has been aggressively treated with antibiotics, dexamethasone, and remdesivir but unfortunately appears to be progressing with increasing oxygen requirement despite high flow. According to the hospitalist she is now significantly deconditioned and is unable to move without significant assistance. Recommendations: 1. It appears the patient is failing conventional therapy. I recommended that the patient meet with palliative care to discuss goals of therapy. We confirmed DNR DNI status with the hospitalist which I think is appropriate. Options at this point in time would be to pursue trials of self pronating as previously recommended. If she fails this, could consider a trial of noninvasive positive pressure ventilation such as BiPAP at pressure settings of 12/6. Would recommend continuing to treat reversible causes. Aggressive diuresis is recommended if the patient can tolerate it. Try to defend a pulse oximetry reading of 85% if possible. Unfortunately, there is not much else to offer the patient at this point in time and she may ultimately succumb from the disease. Again I think discussions with the patient and her medical decision making proxies would be highly recommended and beneficial (2) Acute respiratory failure with hypoxia: Admission and Anticipated Discharge Date Admission Date: September 13, 2020 Subjective Asked by the hospitalist service to reevaluate this patient with COVID-19 pneumonia and hypoxemic respiratory failure. Patient been seen previously by one of my colleagues. She has been treated aggressively with remdesivir and dexamethasone but unfortunately is developing progressive hypoxemic respiratory failure. According to the hospitalist, the patient is profoundly deconditioned and very weak. She is on high flow at maximal settings. Review of Systems Review of Systems: Please refer to the hospitalist note Physical Exam Physical Exam: Exam deferred due to COVID-19 restrictions. Please refer to the hospitalist's progress note from today Results & Data Results & Data ([facility]) Vital Signs (Past 12 Hours) Vital Signs Temp Pulse Resp BP Pulse Ox 09/20/20 16:05 60 22 90 09/20/20 12:09 36.8 C 63 18 126/62 90 09/20/20 12:04 76 22 91 09/20/20 07:38 69 22 88 L 09/20/20 07:08 37.0 C 62 22 131/77 88 L Laboratory Results 09/18/20 05:52 09/18/20 05:52 Diagnostic Findings Chest x-ray from today was independently reviewed. It demonstrates diffuse bilateral infiltrates in a more peripheral pattern progressed compared to chest x-ray from 09/17 PG Care Time/CCT Total # of Minutes Spent Total Time Spent with Patient: Total time spent is greater than 50% in coordination of care (as documented) at patient's floor/unit and/or counseling patient: Coding Level of Care Code None Diagnoses Pneumonia due to COVID-19 virus U07.1; J12.89 Acute respiratory failure with hypoxia J96.01 Time Spent (min) 35 Comment [id number] 35 minutes critical care time including end-of-life decisions
[2020-09-20] MEDS ORDERED: FUROSEMIDE 40 MG in SYRINGE 0 ML IV ONE (17:52)
[2020-09-20] MEDS ORDERED: FUROSEMIDE 40 MG/4 ML VIAL IV ONE ×2 (18:00→19:30)
[2020-09-20] MEDS: ENOXAPARIN INJ 40 MG/0.4 ML SYR SQ SCH (19:36)
[2020-09-21] MEDS: INSULIN ASPART 100 UNITS/ML 3 ML PEN SC SCH ×4 (08:30→21:07)
[2020-09-21] MEDS: guaiFENesin 600 MG TABCR PO SCH ×2 (08:44→21:03)
[2020-09-21] MEDS: lisinopril 20 MG TAB PO SCH (08:52)
[2020-09-21] MEDS: dexAMETHasone 6 MG in SYRINGE 0 ML IV SCH (08:52)
[2020-09-21] MEDS: ENOXAPARIN INJ 40 MG/0.4 ML SYR SQ SCH ×2 (08:53→18:22)
[2020-09-21] MEDS: CITALOPRAM 20 MG TAB PO SCH (08:53)
[2020-09-21] MEDS: INSULIN HUMAN NPH SC SCH (09:05)
--- NOTE | 2020-09-21 11:19 | XRay Report ---
XR chest 1V portable HISTORY: 70 years-old Female SOB /COVID 19 pneumonia acute shortness of breath. COVID Positive. COMPARISON: Chest radiograph 09/20/2020 TECHNIQUE: Portable AP view of the chest FINDINGS: Cardiac silhouette is mildly enlarged, unchanged. Calcified plaque of the thoracic aorta. No pneumoth orax. Trace pleural effusions. Bilateral reticular opacities with peripheral predominant airspace opa cities noted bilaterally, generally unchanged from comparison. Degenerative changes of the shoulders and spine. IMPRESSION: Stable bilateral pulmonary opacities suggest ongoing pneumonia. ACT 112: Negative or not required by law. The above report was generated using voice recognition software. It may contain grammatical, syntax o r spelling errors. Electronically signed by: Durga Fraga M.D. 09/21/2020 11:18 AM
[2020-09-21] MEDS ORDERED: FUROSEMIDE 40 MG TAB PO ONE (13:01)
--- NOTE | 2020-09-21 17:12 | Hospitalist Progress Note ---
Date of Service September 21, 2020 Assessment & Plan (1) Pneumonia due to COVID-19 virus: Acute respiratory failure with hypoxia due to Covid 19 pneumonia remains persistently hypoxic requiring high flow 02 , unable to wean down CXR showed cardiomegaly with mild pulmonary vascular congestion. multifocal airspace consolidation with a predominantly subpleural distribution. CTA showed no evidence of pulmonary embolus in the main, lobar, or segmental pulmonary arteries. multifocal bilateral airspace consolidation as above typical for multifocal pneumonia. repeat Cxray shows progression of multifocal airspace consolidatation Continue IV dexamethasone for 10 days , completed IV remdesivir S/P 1 unit convalescent plasma on 09/14 ordered Lasix for pulm congestion , mild improvement of hypoxia noted Pulmonology on board Continue Doxycycline and Rocephin IV for possible underlying community acquired pneumonia Pt expressed her wish -does not want mechanical ventilation/intubation aware that her overall prognosis remains poor D/w -wants to honor Pt's wish code status DNI Pulmonology input appreciated -recommends prone ventilation ordered for daily Prone ventilation as tolerated pt is too weak to change position , asked nursing to have pt lying on side if not able to lie prone position to improve ventilation will continue supportive care (2) HTN (hypertension): Continue lisinopril BP has been stable (3) Diabetes mellitus type 2, diet-controlled: Hgb A1c 6.1 on 09/13 On NovoLog sliding scale while hospitalized and receiving IV steroids Continue monitor BS (4) Hereditary hemochromatosis: Managed with intermittent phlebotomy Hgb 14.6 Stable (5) Elevated d-dimer: Mostly related to acute infection to COVID 19 Doppler of BLE showed no evidence of DVT CTA chest showed no evidence of PE (6) DVT prophylaxis: On SQ Lovenox Disposition continue to monitor in PCU for respiratory failure update given to SOn over phone contact : Wyatt Toussaint : phone # [phone] Admission and Anticipated Discharge Date Admission Date: September 13, 2020 Subjective follow up visit for Acute hypoxemic resp failure due to covid 19 pneumonia ; pt remains hypoxic while high flow 02 with max setting spo2 variable between mid to high 80's pt continued to have non productive cough able to talk in complete sentences has been afebrile very fatigue with generalized weakness Review of Systems Review of Systems: All systems reviewed & are unremarkable except as noted in HPI & below Respiratory: + cough, + dyspnea and + dyspnea on exertion Physical Exam Constitutional: + ill appearing Eyes: + anicteric sclerae ENMT: external ear and nose normal, oropharynx normal Neck: trachea midline, no thyromegaly Respiratory: + cough Cardiovascular: RRR, no murmur, no edema Gastrointestinal (Abdomen): normal bowel sounds, soft, nontender, no hepatosplenomegaly Musculoskeletal: no cyanosis or clubbing, extremities motor strength 5/5 Neurologic: PERRL, EOMI, accommodation nl, no face palsy, no dysarthria + abnormal deep tendon reflexes Psychiatric: A+Ox3, euthymic affect Orientation: alert and oriented x 3 Affect: + flat affect Results & Data Results & Data ([facility]) Vital Signs (Past 12 Hours) Vital Signs Temp Pulse Pulse Resp BP Pulse Ox 09/21/20 16:52 36.5 C 67 22 121/75 88 L 09/21/20 15:51 67 22 90 09/21/20 11:46 36.3 C L 67 26 H 109/64 89 L 09/21/20 10:50 76 22 88 L 09/21/20 07:39 68 22 89 L 09/21/20 07:29 36.5 C 61 18 88 L 09/21/20 06:47 36.6 C 65 20 120/71 86 L
[2020-09-22] MEDS: ENOXAPARIN INJ 40 MG/0.4 ML SYR SQ SCH ×2 (08:08→21:28)
[2020-09-22] MEDS: guaiFENesin 600 MG TABCR PO SCH ×2 (08:08→21:50)
[2020-09-22] MEDS: CITALOPRAM 20 MG TAB PO SCH (08:09)
[2020-09-22] MEDS: INSULIN ASPART 100 UNITS/ML 3 ML PEN SC SCH ×4 (08:30→21:34)
[2020-09-22] MEDS: INSULIN HUMAN NPH SC SCH (08:52)
[2020-09-22] MEDS: dexAMETHasone 6 MG in SYRINGE 0 ML IV SCH (08:59)
[2020-09-22] MEDS ORDERED: FUROSEMIDE 20 MG TAB PO SCH (09:00)
--- NOTE | 2020-09-22 16:48 | Hospitalist Progress Note ---
Date of Service September 22, 2020 Assessment & Plan (1) Pneumonia due to COVID-19 virus: Acute respiratory failure with hypoxia due to Covid 19 pneumonia remains persistently hypoxic requiring high flow 02 , unable to wean down CXR showed cardiomegaly with mild pulmonary vascular congestion. multifocal airspace consolidation with a predominantly subpleural distribution. CTA showed no evidence of pulmonary embolus in the main, lobar, or segmental pulmonary arteries. multifocal bilateral airspace consolidation as above typical for multifocal pneumonia. Cxray shows progression of multifocal airspace consolidatation Continue IV dexamethasone for 10 days , completed IV remdesivir S/P 1 unit convalescent plasma on 09/14 will continue diuresing with IV Lasix to keep negative balance repeat Cxray ordered in AM Pulmonology on board Continue Doxycycline and Rocephin IV for possible underlying community acquired pneumonia Pt expressed her wish -does not want mechanical ventilation/intubation aware that her overall prognosis remains poor D/w -wants to honor Pt's wish code status DNI Pulmonology input appreciated -recommends prone ventilation ordered for daily Prone ventilation as tolerated pt is too weak to change position , asked nursing to have pt lying on side if not able to lie prone position to improve ventilation will continue supportive care (2) HTN (hypertension): Continue lisinopril BP has been stable (3) Diabetes mellitus type 2, diet-controlled: Hgb A1c 6.1 on 09/13 On NovoLog sliding scale while hospitalized and receiving IV steroids Continue monitor BS (4) Hereditary hemochromatosis: Managed with intermittent phlebotomy Hgb 14.6 Stable (5) Elevated d-dimer: Mostly related to acute infection to COVID 19 Doppler of BLE showed no evidence of DVT CTA chest showed no evidence of PE (6) DVT prophylaxis: On SQ Lovenox Disposition continue to monitor in PCU for respiratory failure prognosis remains guarded contact : Wyatt Toussaint : phone # [phone] Admission and Anticipated Discharge Date Admission Date: September 13, 2020 Subjective follow up visit for Acute hypoxemic resp failure due to covid 19 pneumonia ; pt remains hypoxic while high flow 02 with max setting says she feels better today Spo2 mildly improved sp02 88-90% cough has improved able to talk in complete sentences has been afebrile very fatigue with generalized weakness Review of Systems Review of Systems: All systems reviewed & are unremarkable except as noted in HPI & below Physical Exam Constitutional: + ill appearing Eyes: + anicteric sclerae ENMT: external ear and nose normal, oropharynx normal Neck: trachea midline, no thyromegaly Respiratory: + cough Cardiovascular: RRR, no murmur, no edema Gastrointestinal (Abdomen): normal bowel sounds, soft, nontender, no hepatosplenomegaly Musculoskeletal: no cyanosis or clubbing, extremities motor strength 5/5 Neurologic: PERRL, EOMI, accommodation nl, no face palsy, no dysarthria + abnormal deep tendon reflexes Psychiatric: A+Ox3, euthymic affect Orientation: alert and oriented x 3 Affect: + flat affect Results & Data Results & Data ([facility]) Vital Signs (Past 12 Hours) Vital Signs Temp Pulse Pulse Resp BP Pulse Ox Pulse Ox 09/22/20 15:32 69 18 89 L 09/22/20 15:11 63 09/22/20 14:14 63 09/22/20 14:13 88 L 09/22/20 11:55 36.6 C 59 L 17 107/68 85 L 09/22/20 11:36 72 20 89 L 09/22/20 08:35 36.5 C 59 L 142/74 H 87 L 09/22/20 08:06 142/74 H 09/22/20 07:10 52 L 20 91
[2020-09-22] MEDS ORDERED: FUROSEMIDE 20 MG in SYRINGE 0 ML IV ONE (21:29)
[2020-09-22] MEDS ORDERED: LORazepam 0.5 MG TAB PO STA (22:23)
[2020-09-23] MEDS: ENOXAPARIN INJ 40 MG/0.4 ML SYR SQ SCH ×2 (08:13→19:32)
[2020-09-23] MEDS: CITALOPRAM 20 MG TAB PO SCH (08:13)
[2020-09-23] MEDS: guaiFENesin 600 MG TABCR PO SCH ×2 (08:14→21:29)
[2020-09-23] MEDS: dexAMETHasone 6 MG in SYRINGE 0 ML IV SCH (08:20)
--- NOTE | 2020-09-23 08:21 | XRay Report ---
SINGLE VIEW CHEST CLINICAL HISTORY: Covid pneumonia. FINDINGS: An AP, portable, upright chest radiograph is compared to study dated 09/21/2020. The heart is top normal for projection noting atherosclerotic calcification of the thoracic aorta. Multifocal b ilateral airspace consolidation has modestly not significantly changed from 09/21/2020. No large pleu ral effusion or pneumothorax is seen. The skeletal structures are osteopenic. The bony thorax is augie sly intact. Degenerative change is noted in the shoulders. IMPRESSION: Multifocal bilateral airspace consolidation has not significantly changed from 09/21/2020 . ACT 112: Negative or not required by law. Electronically signed by: Solis Oconnell M.D. 09/23/2020 8:19 AM
[2020-09-23 08:23] LABS: Est GFR (African American) 84.1; Est GFR (Non-African American) 72.6
[2020-09-23] MEDS: INSULIN ASPART 100 UNITS/ML 3 ML PEN SC SCH ×4 (08:30→21:28)
[2020-09-23] MEDS: INSULIN HUMAN NPH SC SCH (08:31)
[2020-09-23] MEDS: FUROSEMIDE 40 MG in SYRINGE 0 ML IV SCH (09:39)
--- NOTE | 2020-09-23 17:19 | Hospitalist Progress Note ---
Date of Service September 23, 2020 Assessment & Plan (1) Pneumonia due to COVID-19 virus: Acute respiratory failure with hypoxia due to Covid 19 pneumonia remains hypoxic , with mild improvement of resp status CXR showed cardiomegaly with mild pulmonary vascular congestion. multifocal airs pace consolidation with a predominantly subpleural distribution. CTA showed no evidence of pulmonary embolus in the main, lobar, or segmental pulmonary arteries. multifocal bilateral airspace consolidation as above typical for multifocal pneumonia. Cxray shows progression of multifocal airspace consolidatation Continue IV dexamethasone for 10 days , completed IV remdesivir S/P 1 unit convalescent plasma on 09/14 will continue diuresing with IV Lasix to keep negative balance repeat Cxray ordered : no significant change of pulmonary infiltrate Pulmonology on board Continue Doxycycline and Rocephin IV for possible underlying community acquired pneumonia (2) HTN (hypertension): Continue lisinopril BP has been stable (3) Diabetes mellitus type 2, diet-controlled: Hgb A1c 6.1 on 09/13 On NovoLog sliding scale while hospitalized and receiving IV steroids Continue monitor BS (4) Hereditary hemochromatosis: Managed with intermittent phlebotomy Hgb 14.6 Stable (5) Elevated d-dimer: Mostly related to acute infection to COVID 19 Doppler of BLE showed no evidence of DVT CTA chest showed no evidence of PE (6) DVT prophylaxis: On SQ Lovenox CODE STATUS: DNI Disposition continue to monitor in PCU for respiratory failure prognosis remains guarded contact : Wyatt Toussaint : phone # [phone] Admission and Anticipated Discharge Date Admission Date: September 13, 2020 Subjective follow up visit for Acute hypoxemic resp failure due to covid 19 pneumonia ; hypoxia mildly improved , reduced high flow 02 to 35 L/min spo2 remains between 41081% pt reports of feeling better today cough has improved able to talk in complete sentences has been afebrile Review of Systems Review of Systems: All systems reviewed & are unremarkable except as noted in HPI & below Constitutional: + fatigue; no fever and no chills Respiratory: + cough and + dyspnea on exertion Physical Exam Constitutional: + ill appearing Eyes: + anicteric sclerae ENMT: external ear and nose normal, oropharynx normal Neck: trachea midline, no thyromegaly Respiratory: + cough Cardiovascular: RRR, no murmur, no edema Gastrointestinal (Abdomen): normal bowel sounds, soft, nontender, no hepatosplenomegaly Musculoskeletal: no cyanosis or clubbing, extremities motor strength 5/5 Neurologic: PERRL, EOMI, accommodation nl, no face palsy, no dysarthria + abnormal deep tendon reflexes Psychiatric: A+Ox3, euthymic affect Orientation: alert and oriented x 3 Affect: + flat affect Results & Data Results & Data ([facility]) Vital Signs (Past 12 Hours) Vital Signs Temp Pulse Pulse Resp BP Pulse Ox Pulse Ox 09/23/20 16:59 88 L 09/23/20 15:45 36.5 C 79 18 121/73 89 L 09/23/20 15:20 70 09/23/20 15:07 67 20 89 L 09/23/20 11:52 36.6 C 72 18 113/69 91 09/23/20 11:04 66 20 90 09/23/20 10:59 47 L 09/23/20 08:00 36.6 C 58 L 20 158/72 H 91 09/23/20 07:10 48 L 18 93
[2020-09-23] MEDS ORDERED: LORazepam 0.5 MG TAB PO PRN (19:49)
[2020-09-24 08:02] LABS: BUN Creatinine Ratio 46.3 (10-20); Calcium 8.6 mg/dl (8.5-10.1); Creatinine Clr Calc Pharmacy 63.6 ml/min; Est GFR (African American) 93.8; Est GFR (Non-African American) 80.9; Potassium 3.3 mmol/L (3.5-5.1)
[2020-09-24] MEDS: INSULIN ASPART 100 UNITS/ML 3 ML PEN SC SCH ×4 (09:32→21:30)
[2020-09-24] MEDS: ENOXAPARIN INJ 40 MG/0.4 ML SYR SQ SCH ×2 (09:32→22:09)
[2020-09-24] MEDS: FUROSEMIDE 40 MG in SYRINGE 0 ML IV SCH (09:33)
[2020-09-24] MEDS: CITALOPRAM 20 MG TAB PO SCH (09:33)
[2020-09-24] MEDS: INSULIN HUMAN NPH SC SCH (09:34)
[2020-09-24] MEDS: guaiFENesin 600 MG TABCR PO SCH ×2 (09:34→22:09)
[2020-09-24] MEDS ORDERED: POTASSIUM CHLORIDE CRTAB 20 MEQ TABCR PO STA (11:24)
--- NOTE | 2020-09-24 17:26 | Hospitalist Progress Note ---
Date of Service September 24, 2020 Assessment & Plan (1) Pneumonia due to COVID-19 virus: Acute respiratory failure with hypoxia due to Covid 19 pneumonia remains hypoxic , with mild improvement of resp status CXR showed cardiomegaly with mild pulmonary vascular congestion. multifocal airspace consolidation with a predominantly subpleural distribution. CTA showed no evidence of pulmonary embolus in the main, lobar, or segmental pulmonary arteries. multifocal bilateral airspace consolidation as above typical for multifocal pneumonia. Cxray shows progression of multifocal airspace consolidatation Continue IV dexamethasone for 10 days , completed IV remdesivir S/P 1 unit convalescent plasma on 09/14 will continue diuresing with IV Lasix to keep negative balance repeat Cxray ordered : no significant change of pulmonary infiltrate Pulmonology on board Continue Doxycycline and Rocephin IV for possible underlying community acquired pneumonia (2) HTN (hypertension): Continue lisinopril BP has been stable (3) Diabetes mellitus type 2, diet-controlled: Hgb A1c 6.1 on 09/13 On NovoLog sliding scale while hospitalized and receiving IV steroids Continue monitor BS (4) Hereditary hemochromatosis: Managed with intermittent phlebotomy Hgb 14.6 Stable (5) Elevated d-dimer: Mostly related to acute infection to COVID 19 Doppler of BLE showed no evidence of DVT CTA chest showed no evidence of PE (6) DVT prophylaxis: On SQ Lovenox CODE STATUS: DNI Disposition continue to monitor in PCU for respiratory failure prognosis remains guarded contact : Wyatt Toussaint : phone # [phone] Admission and Anticipated Discharge Date Admission Date: September 13, 2020 Subjective follow up visit for Acute hypoxemic resp failure due to covid 19 pneumonia ; pt appears to be comfortable , watching TV remains Hypoxic on High flow 02 :now on 35L/min ( improved from 40L/min ) Sp02 remains stable in 90's pt reports of feeling better cough has improved able to talk in complete sentences has been afebrile Physical Exam Constitutional: + ill appearing Eyes: + anicteric sclerae ENMT: external ear and nose normal, oropharynx normal Neck: trachea midline, no thyromegaly Respiratory: + cough Cardiovascular: RRR, no murmur, no edema Gastrointestinal (Abdomen): normal bowel sounds, soft, nontender, no hepatosplenomegaly Musculoskeletal: no cyanosis or clubbing, extremities motor strength 5/5 Neurologic: PERRL, EOMI, accommodation nl, no face palsy, no dysarthria + abnormal deep tendon reflexes Psychiatric: A+Ox3, euthymic affect Orientation: alert and oriented x 3 Affect: + flat affect Results & Data Results & Data ([facility]) Vital Signs (Past 12 Hours) Vital Signs Temp Pulse Pulse Resp BP Pulse Ox 09/24/20 16:35 77 09/24/20 15:16 36.9 C 88 18 115/63 95 09/24/20 15:01 79 20 90 09/24/20 11:53 36.9 C 77 20 128/74 90 09/24/20 11:37 79 88 L 09/24/20 09:36 90 09/24/20 08:15 36.9 C 56 L 18 114/59 L 88 L 09/24/20 07:39 53 L 09/24/20 07:14 52 L 18 91
[2020-09-25 08:50] LABS: Creatinine Clr Calc Pharmacy 69.3 ml/min; Est GFR (African American) 101.3; Est GFR (Non-African American) 87.4; Potassium 3.4 mmol/L (3.5-5.1)
[2020-09-25] MEDS: INSULIN ASPART 100 UNITS/ML 3 ML PEN SC SCH ×4 (09:25→21:41)
[2020-09-25] MEDS: FUROSEMIDE 40 MG in SYRINGE 0 ML IV SCH (09:25)
[2020-09-25] MEDS: POTASSIUM CHLORIDE CRTAB 20 MEQ TABCR PO SCH (10:09)
[2020-09-25] MEDS: ENOXAPARIN INJ 40 MG/0.4 ML SYR SQ SCH ×2 (10:09→17:40)
[2020-09-25] MEDS: guaiFENesin 600 MG TABCR PO SCH ×2 (10:09→20:40)
[2020-09-25] MEDS: CITALOPRAM 20 MG TAB PO SCH (10:10)
[2020-09-25] MEDS ORDERED: POTASSIUM CHLORIDE 10 MEQ TABCR PO STA (10:34)
--- NOTE | 2020-09-25 19:12 | Hospitalist Progress Note ---
Date of Service September 25, 2020 Assessment & Plan (1) Pneumonia due to COVID-19 virus: Acute respiratory failure with hypoxia due to Covid 19 pneumonia remains hypoxic , with mild improvement of resp status CXR showed cardiomegaly with mild pulmonary vascular congestion. multifocal airspace consolidation with a predominantly subpleural distribution. CTA showed no evidence of pulmonary embolus in the main, lobar, or segmental pulmonary arteries. multifocal bilateral airspace consolidation as above typical for multifocal pneumonia. Cxray shows progression of multifocal airspace consolidatation Continue IV dexamethasone for 10 days , completed IV remdesivir S/P 1 unit convalescent plasma on 09/14 will continue diuresing with IV Lasix to keep negative balance repeat Cxray ordered : no significant change of pulmonary infiltrate Pulmonology on board Continue Doxycycline and Rocephin IV for possible underlying community acquired pneumonia (2) HTN (hypertension): Continue lisinopril BP has been stable (3) Diabetes mellitus type 2, diet-controlled: Hgb A1c 6.1 on 09/13 On NovoLog sliding scale while hospitalized and receiving IV steroids Continue monitor BS (4) Hereditary hemochromatosis: Managed with intermittent phlebotomy Hgb 14.6 Stable (5) Elevated d-dimer: Mostly related to acute infection to COVID 19 Doppler of BLE showed no evidence of DVT CTA chest showed no evidence of PE (6) DVT prophylaxis: On SQ Lovenox CODE STATUS: DNI Disposition continue to monitor in PCU for respiratory failure prognosis remains guarded contact : Wyatt Toussaint : phone # [phone] Admission and Anticipated Discharge Date Admission Date: September 13, 2020 Subjective Pt was seen and examined Lying in bed with no distress Pt looks comfortable and able to speak Denies any chest pain, palpitation, dizziness and fever Physical Exam Physical Exam: General- No acute distress Head- atraumatic Eyes- PERRL, EOMI, ENT- oropharynx clear Neck- supple, no JVD Lungs- diminished breath sound Heart- regular rhythm; no murmur Abdomen- normal bowel sounds, soft, nontender Extremities- no calf tenderness Neuro- alert, oriented x 3; PERRL, EOMI; no facial palsy; no dysarthria Skin- warm & dry Results & Data Results & Data ([facility]) Vital Signs (Past 12 Hours) Vital Signs Temp Pulse Pulse Resp BP BP Pulse Ox 09/25/20 16:23 36.7 C 85 18 124/78 90 09/25/20 15:17 92 H 22 90 09/25/20 11:54 78 18 94 09/25/20 08:47 36.8 C 69 18 114/63 89 L 09/25/20 08:10 68 20 91 09/25/20 08:00 64
[2020-09-26 08:26] LABS: Creatinine Clr Calc Pharmacy 74.8 ml/min; Est GFR (African American) 103.9; Est GFR (Non-African American) 89.6; Potassium 3.2 mmol/L (3.5-5.1)
[2020-09-26] MEDS: POTASSIUM CHLORIDE CRTAB 20 MEQ TABCR PO SCH (09:23)
[2020-09-26] MEDS: CITALOPRAM 20 MG TAB PO SCH (09:23)
[2020-09-26] MEDS: guaiFENesin 600 MG TABCR PO SCH ×2 (09:23→21:52)
[2020-09-26] MEDS: ENOXAPARIN INJ 40 MG/0.4 ML SYR SQ SCH ×2 (09:24→21:52)
[2020-09-26] MEDS: FUROSEMIDE 40 MG in SYRINGE 0 ML IV SCH (09:26)
[2020-09-26] MEDS: INSULIN ASPART 100 UNITS/ML 3 ML PEN SC SCH ×4 (10:01→22:14)
[2020-09-26] MEDS ORDERED: POTASSIUM CHLORIDE CRTAB 20 MEQ TABCR PO STA (11:00)
--- NOTE | 2020-09-26 19:59 | Hospitalist Progress Note ---
Date of Service September 26, 2020 Assessment & Plan (1) Pneumonia due to COVID-19 virus: Acute respiratory failure with hypoxia due to Covid 19 pneumonia remains hypoxic , with mild improvement of resp status CXR showed cardiomegaly with mild pulmonary vascular congestion. multifocal airspace consolidation with a predominantly subpleural distribution. CTA showed no evidence of pulmonary embolus in the main, lobar, or segmental pulmonary arteries. multifocal bilateral airspace consolidation as above typical for multifocal pneumonia. Cxray shows progression of multifocal airspace consolidatation Continue IV dexamethasone for 10 days , completed IV remdesivir S/P 1 unit convalescent plasma on 09/14 will continue diuresing with IV Lasix to keep negative balance repeat Cxray ordered : no significant change of pulmonary infiltrate Pulmonology on board Continue Doxycycline and Rocephin IV for possible underlying community acquired pneumonia (2) HTN (hypertension): Continue lisinopril BP has been stable (3) Diabetes mellitus type 2, diet-controlled: Hgb A1c 6.1 on 09/13 On NovoLog sliding scale while hospitalized and receiving IV steroids Continue monitor BS (4) Hereditary hemochromatosis: Managed with intermittent phlebotomy Hgb 14.6 Stable (5) Elevated d-dimer: Mostly related to acute infection to COVID 19 Doppler of BLE showed no evidence of DVT CTA chest showed no evidence of PE (6) DVT prophylaxis: On SQ Lovenox CODE STATUS: DNI Disposition continue to monitor in PCU for respiratory failure prognosis remains guarded contact : Wyatt Toussaint : phone # [phone] Admission and Anticipated Discharge Date Admission Date: September 13, 2020 Subjective Follow up visit for Acute hypoxemic respiratory failure due to covid 19 pneumonia Pt was seen and examined Lying in bed with no distress Pt continues to improve slowly Her breathing slightly improve Denies any chest pain, palpitation, dizziness and fever Physical Exam Physical Exam: General- No acute distress Head- atraumatic Eyes- PERRL, EOMI, ENT- oropharynx clear Neck- supple, no JVD Lungs- diminished breath sound Heart- regular rhythm; no murmur Abdomen- normal bowel sounds, soft, nontender Extremities- no calf tenderness Neuro- alert, oriented x 3; PERRL, EOMI; no facial palsy; no dysarthria Skin- warm & dry Results & Data Results & Data ([facility]) Vital Signs (Past 12 Hours) Vital Signs Temp Pulse Resp BP BP Pulse Ox 09/26/20 16:22 36.7 C 74 20 127/79 91 09/26/20 11:20 36.7 C 88 16 117/73 92 09/26/20 11:06 86 24 93 09/26/20 08:13 36.8 C 75 18 109/68 92
[2020-09-27 08:27] LABS: Creatinine Clr Calc Pharmacy 76.8 ml/min; Est GFR (Non-African American) 90.6; Potassium 3.5 mmol/L (3.5-5.1)
[2020-09-27] MEDS: FUROSEMIDE 40 MG in SYRINGE 0 ML IV SCH (09:30)
[2020-09-27] MEDS: INSULIN ASPART 100 UNITS/ML 3 ML PEN SC SCH ×4 (09:30→22:42)
[2020-09-27] MEDS: ENOXAPARIN INJ 40 MG/0.4 ML SYR SQ SCH ×2 (09:31→21:28)
[2020-09-27] MEDS: guaiFENesin 600 MG TABCR PO SCH ×2 (09:31→21:29)
[2020-09-27] MEDS: POTASSIUM CHLORIDE CRTAB 20 MEQ TABCR PO SCH (09:32)
[2020-09-27] MEDS: CITALOPRAM 20 MG TAB PO SCH (09:32)
[2020-09-27] MEDS ORDERED: POTASSIUM CHLORIDE CRTAB 20 MEQ TABCR PO STA (21:22)
--- NOTE | 2020-09-27 21:23 | Hospitalist Progress Note ---
Date of Service September 27, 2020 Assessment & Plan (1) Pneumonia due to COVID-19 virus: Acute respiratory failure with hypoxia due to Covid 19 pneumonia remains hypoxic , with mild improvement of resp status CXR showed cardiomegaly with mild pulmonary vascular congestion. multifocal airspace consolidation with a predominantly subpleural distribution. CTA showed no evidence of pulmonary embolus in the main, lobar, or segmental pulmonary arteries. multifocal bilateral airspace consolidation as above typical for multifocal pneumonia. Completed IV dexamethasone 10 days and IV remdesivir 5 days S/P 1 unit convalescent plasma on 09/14 will continue diuresing with IV Lasix to keep negative balance Repeat Cxray ordered : no significant change of pulmonary infiltrate Pulmonology on board Completed course of antibiotic with Doxycycline and Rocephin Continue oxygen supplement and continue to tritrate off oxygen (2) HTN (hypertension): Continue lisinopril BP has been stable (3) Diabetes mellitus type 2, diet-controlled: Hgb A1c 6.1 on 09/13 On NovoLog sliding scale while hospitalized and receiving IV steroids Continue monitor BS (4) Hypokalemia: Mostly due to diuretic K 3.5 today Continue K supplement continue monitor BMP (5) Hereditary hemochromatosis: Managed with intermittent phlebotomy Hgb 14.6 Stable (6) Elevated d-dimer: Mostly related to acute infection to COVID 19 Doppler of BLE showed no evidence of DVT CTA chest showed no evidence of PE (7) DVT prophylaxis: On SQ Lovenox CODE STATUS: DNI Disposition continue to monitor in PCU for respiratory failure Prognosis remains guarded contact : Wyatt Toussaint : phone # [phone] Admission and Anticipated Discharge Date Admission Date: September 13, 2020 Subjective Follow up visit for Acute hypoxemic respiratory failure due to covid 19 pneumonia Pt was seen and examined Lying in bed with no distress Pt said that her breathing continue to improve slowly Continue to titrate her oxygen supplement, now on 60% Denies any chest pain, palpitation, dizziness and fever Physical Exam Physical Exam: General- No acute distress Head- atraumatic Eyes- PERRL, EOMI, ENT- oropharynx clear Neck- supple, no JVD Lungs- diminished breath sound Heart- regular rhythm; no murmur Abdomen- normal bowel sounds, soft, nontender Extremities- no calf tenderness Neuro- alert, oriented x 3; PERRL, EOMI; no facial palsy; no dysarthria Skin- warm & dry Results & Data Results & Data ([facility]) Vital Signs (Past 12 Hours) Vital Signs Temp Pulse Pulse Pulse Resp BP Pulse Ox 09/27/20 20:06 37.1 C 81 20 117/73 92 09/27/20 17:00 86 09/27/20 16:12 36.8 C 85 18 105/67 93 09/27/20 16:10 85 18 93 09/27/20 12:05 36.5 C 84 18 152/90 H 94 09/27/20 10:41 80 20 92
[2020-09-28] MEDS: INSULIN ASPART 100 UNITS/ML 3 ML PEN SC SCH ×5 (08:10→21:47)
[2020-09-28] MEDS: guaiFENesin 600 MG TABCR PO SCH ×2 (09:00→20:09)
[2020-09-28] MEDS: CITALOPRAM 20 MG TAB PO SCH (09:00)
[2020-09-28] MEDS: POTASSIUM CHLORIDE CRTAB 20 MEQ TABCR PO SCH (09:00)
[2020-09-28] MEDS: FUROSEMIDE 40 MG in SYRINGE 0 ML IV SCH (09:00)
[2020-09-28 17:38] LABS: BUN Creatinine Ratio 31.7 (10-20); Calcium 8.4 mg/dl (8.5-10.1); Creatinine Clr Calc Pharmacy 80.7 ml/min; Est GFR (African American) 106.7; Est GFR (Non-African American) 92.1; Potassium 3.8 mmol/L (3.5-5.1)
--- NOTE | 2020-09-28 18:55 | Hospitalist Progress Note ---
Date of Service September 28, 2020 Assessment & Plan (1) Pneumonia due to COVID-19 virus: Acute respiratory failure with hypoxia due to Covid 19 pneumonia remains hypoxic , with mild improvement of resp status CXR showed cardiomegaly with mild pulmonary vascular congestion. multifocal airspace consolidation with a predominantly subpleural distribution. CTA showed no evidence of pulmonary embolus in the main, lobar, or segmental pulmonary arteries. multifocal bilateral airspace consolidation as above typical for multifocal pneumonia. Completed IV dexamethasone 10 days and IV remdesivir 5 days S/P 1 unit convalescent plasma on 09/14 will continue diuresing with IV Lasix to keep negative balance Repeat Cxray ordered : no significant change of pulmonary infiltrate Pulmonology on board Completed course of antibiotic with Doxycycline and Rocephin Continue oxygen supplement and continue to tritrate off oxygen (2) HTN (hypertension): Continue lisinopril BP has been stable (3) Diabetes mellitus type 2, diet-controlled: Hgb A1c 6.1 on 09/13 On NovoLog sliding scale while hospitalized and receiving IV steroids Continue monitor BS (4) Hypokalemia: Mostly due to diuretic K 3.5 today Continue K supplement continue monitor BMP (5) Hereditary hemochromatosis: Managed with intermittent phlebotomy Hgb 14.6 Stable (6) Elevated d-dimer: Mostly related to acute infection to COVID 19 Doppler of BLE showed no evidence of DVT CTA chest showed no evidence of PE (7) DVT prophylaxis: On SQ Lovenox CODE STATUS: DNI Disposition continue to monitor in PCU for respiratory failure Prognosis remains guarded contact : Wyatt Toussaint : phone # [phone] Admission and Anticipated Discharge Date Admission Date: September 13, 2020 Subjective Follow up visit for Acute hypoxemic respiratory failure due to covid 19 pneumonia Pt was seen and examined Lying in bed with no distress [place] to improve slowly Denies any chest pain, palpitation, dizziness and fever Physical Exam Physical Exam: General- No acute distress Head- atraumatic Eyes- PERRL, EOMI, ENT- oropharynx clear Neck- supple, no JVD Lungs- diminished breath sound Heart- regular rhythm; no murmur Abdomen- normal bowel sounds, soft, nontender Extremities- no calf tenderness Neuro- alert, oriented x 3; PERRL, EOMI; no facial palsy; no dysarthria Skin- warm & dry Results & Data Results & Data ([facility]) Vital Signs (Past 12 Hours) Vital Signs Pulse 09/28/20 09:00 72
[2020-09-28] MEDS: ENOXAPARIN INJ 40 MG/0.4 ML SYR SQ SCH ×2 (19:32→20:09)
[2020-09-29] MEDS: ENOXAPARIN INJ 40 MG/0.4 ML SYR SQ SCH ×2 (06:39→18:20)
[2020-09-29] MEDS: INSULIN ASPART 100 UNITS/ML 3 ML PEN SC SCH ×4 (08:07→20:22)
[2020-09-29] MEDS: guaiFENesin 600 MG TABCR PO SCH ×2 (08:11→20:44)
[2020-09-29] MEDS: FUROSEMIDE 40 MG in SYRINGE 0 ML IV SCH (08:11)
[2020-09-29] MEDS: POTASSIUM CHLORIDE CRTAB 20 MEQ TABCR PO SCH (08:11)
[2020-09-29 09:16] LABS: BUN Creatinine Ratio 23.4 (10-20); C Reactive Protein 2.63 mg/dl (0-0.29); Calcium 8.6 mg/dl (8.5-10.1); Creatinine Clr Calc Pharmacy 65.1 ml/min; Est GFR (Non-African American) 83.7; Potassium 3.6 mmol/L (3.5-5.1)
[2020-09-29] MEDS: CITALOPRAM 20 MG TAB PO SCH (09:26)
[2020-09-29] MEDS ORDERED: bisacodyL 5 MG TABEC PO PRN (14:22)
--- NOTE | 2020-09-29 17:33 | Hospitalist Progress Note ---
Date of Service September 29, 2020 Assessment & Plan (1) Pneumonia due to COVID-19 virus: Acute respiratory failure with hypoxia due to Covid 19 pneumonia remains hypoxic , with mild improvement of resp status CXR showed cardiomegaly with mild pulmonary vascular congestion. multifocal airspace consolidation with a predominantly subpleural distribution. CTA showed no evidence of pulmonary embolus in the main, lobar, or segmental pulmonary arteries. multifocal bilateral airspace consolidation as above typical for multifocal pneumonia. Completed IV dexamethasone 10 days and IV remdesivir 5 days S/P 1 unit convalescent plasma on 09/14 will continue diuresing with IV Lasix to keep negative balance Repeat Cxray ordered : no significant change of pulmonary infiltrate Pulmonology on board Completed course of antibiotic with Doxycycline and Rocephin Titrate off high flow oxygen today Continue oxygen supplement with 3L NC Will encourage activity as tolerated and D/C mcneil PT/OT eval (2) HTN (hypertension): Continue lisinopril BP has been stable (3) Diabetes mellitus type 2, diet-controlled: Hgb A1c 6.1 on 09/13 On NovoLog sliding scale while hospitalized and receiving IV steroids Continue monitor BS (4) Hypokalemia: Mostly due to diuretic K 3.5 Continue K supplement continue monitor BMP (5) Hereditary hemochromatosis: Managed with intermittent phlebotomy Hgb 14.6 Stable (6) Elevated d-dimer: Mostly related to acute infection to COVID 19 Doppler of BLE showed no evidence of DVT CTA chest showed no evidence of PE (7) DVT prophylaxis: On SQ Lovenox CODE STATUS: DNI Disposition Will discharge once medically stable contact : Wyatt Toussaint : phone # [phone] Admission and Anticipated Discharge Date Admission Date: September 13, 2020 Subjective Pt was seen and examined for follow up for Acute hypoxemic respiratory failure due to covid 19 pneumonia Lying in bed with no distress. Pt was titrate off high flow oxygen Currently on 3L NC and saturated well She said that she feels fine and looking comfortable Denies any chest pain, palpitation, dizziness and fever Physical Exam Physical Exam: General- No acute distress Head- atraumatic Eyes- PERRL, EOMI, ENT- oropharynx clear Neck- supple, no JVD Lungs- diminished breath sound Heart- regular rhythm; no murmur Abdomen- normal bowel sounds, soft, nontender Extremities- no calf tenderness Neuro- alert, oriented x 3; PERRL, EOMI; no facial palsy; no dysarthria Skin- warm & dry Results & Data Results & Data ([facility]) Vital Signs (Past 12 Hours) Vital Signs Temp Pulse Pulse Resp BP Pulse Ox 09/29/20 15:09 36.8 C 74 18 130/79 95 09/29/20 14:59 79 09/29/20 11:02 36.8 C 78 21 116/75 92 09/29/20 07:47 65 09/29/20 07:25 37 C 71 16 124/81 94 09/29/20 07:08 74 20 93
[2020-09-30] MEDS: ENOXAPARIN INJ 40 MG/0.4 ML SYR SQ SCH ×2 (06:37→21:45)
[2020-09-30] MEDS: POTASSIUM CHLORIDE CRTAB 20 MEQ TABCR PO SCH (08:17)
[2020-09-30] MEDS: CITALOPRAM 20 MG TAB PO SCH (08:17)
[2020-09-30] MEDS: guaiFENesin 600 MG TABCR PO SCH ×2 (08:17→21:45)
[2020-09-30] MEDS: FUROSEMIDE 40 MG in SYRINGE 0 ML IV SCH (08:18)
[2020-09-30] MEDS: INSULIN ASPART 100 UNITS/ML 3 ML PEN SC SCH ×4 (08:20→21:49)
--- NOTE | 2020-09-30 20:51 | Hospitalist Progress Note ---
Date of Service September 30, 2020 Assessment & Plan (1) Pneumonia due to COVID-19 virus: Acute respiratory failure with hypoxia due to Covid 19 pneumonia remains hypoxic , with mild improvement of resp status CXR showed cardiomegaly with mild pulmonary vascular congestion. multifocal airspace consolidation with a predominantly subpleural distribution. CTA showed no evidence of pulmonary embolus in the main, lobar, or segmental pulmonary arteries. multifocal bilateral airspace consolidation as above typical for multifocal pneumonia. Completed IV dexamethasone 10 days and IV remdesivir 5 days S/P 1 unit convalescent plasma on 09/14 will continue diuresing with IV Lasix to keep negative balance Repeat Cxray ordered : no significant change of pulmonary infiltrate Pulmonology on board Completed course of antibiotic with Doxycycline and Rocephin Titrate off high flow oxygen today Continue oxygen supplement with 3L NC Will get a 2 step on discharge Will encourage activity as tolerated and D/C mcneil Continue Physical therapy (2) HTN (hypertension): Continue lisinopril BP has been stable (3) Diabetes mellitus type 2, diet-controlled: Hgb A1c 6.1 on 09/13 On NovoLog sliding scale while hospitalized and receiving IV steroids Continue monitor BS (4) Hypokalemia: Mostly due to diuretic K 3.5 Continue K supplement continue monitor BMP (5) Hereditary hemochromatosis: Managed with intermittent phlebotomy Hgb 14.6 Stable (6) Elevated d-dimer: Mostly related to acute infection to COVID 19 Doppler of BLE showed no evidence of DVT CTA chest showed no evidence of PE (7) Weakness: Mostly related to COVID 19 Pneumonia since pt has been on bedrest for over 2 weeks Continue PT/OT Fall precaution Not interested to go to rehab yet (8) DVT prophylaxis: On SQ Lovenox CODE STATUS: DNI Disposition Will discharge once medically stable contact : Wyatt Toussaint : phone # [phone] Admission and Anticipated Discharge Date Admission Date: September 13, 2020 Subjective Pt was seen and examined for follow up for Acute hypoxemic respiratory failure due to covid 19 pneumonia Lying in bed with no distress. Pt was titrate off high flow oxygen Currently on 3L NC and saturated well She worked with therapy today, but feel weak She is not interested yet to rehab Denies any chest pain, palpitation, dizziness and fever Physical Exam Physical Exam: General- No acute distress Head- atraumatic Eyes- PERRL, EOMI, ENT- oropharynx clear Neck- supple, no JVD Lungs- diminished breath sound Heart- regular rhythm; no murmur Abdomen- normal bowel sounds, soft, nontender Extremities- no calf tenderness Neuro- alert, oriented x 3; PERRL, EOMI; no facial palsy; no dysarthria Skin- warm & dry Results & Data Results & Data ([facility]) Vital Signs (Past 12 Hours) Vital Signs Temp Pulse Pulse Resp BP Pulse Ox 09/30/20 20:35 36.7 C 89 18 130/73 92 09/30/20 16:07 36.5 C 94 H 19 125/74 92 09/30/20 16:00 89 09/30/20 15:27 92 09/30/20 12:00 36.6 C 87 22 120/72 92
[2020-10-01 06:47] LABS: BUN Creatinine Ratio 26.7 (10-20); Calcium 8.4 mg/dl (8.5-10.1); Creatinine Clr Calc Pharmacy 69.5 ml/min; Est GFR (African American) 101.8; Est GFR (Non-African American) 87.8; Potassium 3.3 mmol/L (3.5-5.1)
[2020-10-01] MEDS: INSULIN ASPART 100 UNITS/ML 3 ML PEN SC SCH ×4 (08:18→21:11)
[2020-10-01] MEDS: ENOXAPARIN INJ 40 MG/0.4 ML SYR SQ SCH ×2 (08:20→21:11)
[2020-10-01] MEDS: CITALOPRAM 20 MG TAB PO SCH (08:21)
[2020-10-01] MEDS: FUROSEMIDE 40 MG TAB PO SCH (08:21)
[2020-10-01] MEDS: guaiFENesin 600 MG TABCR PO SCH ×2 (08:21→21:11)
[2020-10-01] MEDS: POTASSIUM CHLORIDE CRTAB 20 MEQ TABCR PO SCH (08:22)
[2020-10-01] MEDS ORDERED: POTASSIUM CHLORIDE CRTAB 20 MEQ TABCR PO STA (11:12)
--- NOTE | 2020-10-01 20:16 | Hospitalist Progress Note ---
Date of Service October 01, 2020 Assessment & Plan (1) Pneumonia due to COVID-19 virus: Acute respiratory failure with hypoxia due to Covid 19 pneumonia remains hypoxic , with mild improvement of resp status CXR showed cardiomegaly with mild pulmonary vascular congestion. multifocal airspace consolidation with a predominantly subpleural distribution. CTA showed no evidence of pulmonary embolus in the main, lobar, or segmental pulmonary arteries. multifocal bilateral airspace consolidation as above typical for multifocal pneumonia. Completed IV dexamethasone 10 days and IV remdesivir 5 days S/P 1 unit convalescent plasma on 09/14 will continue diuresing with IV Lasix to keep negative balance Repeat Cxray ordered : no significant change of pulmonary infiltrate Pulmonology on board Completed course of antibiotic with Doxycycline and Rocephin Titrate off high flow oxygen, continue oxygen supplement 2 step exercise done today and showed pt that required 6L NC Will encourage pt to be a little bit active Will need to repeat the 2 step again once her oxygenation improves Continue titrate oxygen supplement Continue Physical therapy (2) HTN (hypertension): Continue lisinopril BP has been stable (3) Diabetes mellitus type 2, diet-controlled: Hgb A1c 6.1 on 09/13 On NovoLog sliding scale while hospitalized and receiving IV steroids Continue monitor BS (4) Hypokalemia: Mostly due to diuretic K 3.3 today, replaced Continue K supplement continue monitor BMP (5) Hereditary hemochromatosis: Managed with intermittent phlebotomy Hgb 14.6 Stable (6) Elevated d-dimer: Mostly related to acute infection to COVID 19 Doppler of BLE showed no evidence of DVT CTA chest showed no evidence of PE (7) Weakness: Mostly related to COVID 19 Pneumonia since pt has been on bedrest for over 2 weeks Continue PT/OT Fall precaution Not interested to go to rehab yet (8) DVT prophylaxis: On SQ Lovenox CODE STATUS: DNI Disposition Will discharge once medically stable contact : Wyatt Toussaint : phone # [phone] Admission and Anticipated Discharge Date Admission Date: September 13, 2020 Subjective Pt was seen and examined for follow up on hypoxia due to COVID 19 Pt said that she feels much better She continue to require oxygen supplement She wants to go home today 2 step exercise done and showed that she will require 6L NC Pt continues to refuse inpatient rehab Denies any chest pain, palpitation, dizziness and fever Physical Exam Physical Exam: General- No acute distress Head- atraumatic Eyes- PERRL, EOMI, ENT- oropharynx clear Neck- supple, no JVD Lungs- diminished breath sound Heart- regular rhythm; no murmur Abdomen- normal bowel sounds, soft, nontender Extremities- no calf tenderness Neuro- alert, oriented x 3; PERRL, EOMI; no facial palsy; no dysarthria Skin- warm & dry Results & Data Results & Data ([facility]) Vital Signs (Past 12 Hours) Vital Signs Temp Pulse Pulse Resp BP BP Pulse Ox 10/01/20 19:50 36.4 C L 84 19 113/69 91 10/01/20 15:48 36.6 C 90 19 121/73 93 10/01/20 15:10 93 H 10/01/20 11:39 36.5 C 91 H 20 131/78 90
[2020-10-02] MEDS: ENOXAPARIN INJ 40 MG/0.4 ML SYR SQ SCH (08:01)
[2020-10-02] MEDS: FUROSEMIDE 40 MG TAB PO SCH (08:02)
[2020-10-02] MEDS: CITALOPRAM 20 MG TAB PO SCH (08:02)
[2020-10-02] MEDS: POTASSIUM CHLORIDE CRTAB 20 MEQ TABCR PO SCH (08:02)
[2020-10-02] MEDS: guaiFENesin 600 MG TABCR PO SCH ×2 (08:02→20:23)
[2020-10-02] MEDS: INSULIN ASPART 100 UNITS/ML 3 ML PEN SC SCH ×4 (08:04→20:26)
[2020-10-02 08:39] LABS: Calcium 9.2 mg/dl (8.5-10.1); Creatinine Clr Calc Pharmacy 66.4 ml/min; Est GFR (African American) 100.3; Est GFR (Non-African American) 86.6; Magnesium 2.2 mg/dl (1.8-2.4); Potassium 3.9 mmol/L (3.5-5.1)
--- NOTE | 2020-10-02 15:06 | XRay Report ---
XR chest 1V portable CLINICAL HISTORY: Hypoxia. Follow-up abnormal chest x-ray. COMPARISON STUDY: 09/23/2020 FINDINGS: The cardiac and mediastinal contours remain stable. There are multifocal bilateral pulmonar y airspace opacities consistent with a multifocal pneumonia. The findings remain similar to the prior study. There are no pleural effusions. There is no overt failure.[ IMPRESSION: Multifocal bilateral pulmonary airspace opacities similar to the preceding study ACT 112: Negative or not required by law. Electronically signed by: Mir Medina M.D. 10/02/2020 3:05 PM
--- NOTE | 2020-10-02 16:28 | Hospitalist Progress Note ---
Date of Service October 02, 2020 Assessment & Plan (1) Pneumonia due to COVID-19 virus: Acute respiratory failure with hypoxia due to Covid 19 pneumonia -On 09/13/2020, patient presented from home with reports of generalized weakness, fatigue, worsening shortness of breath, loss of taste and smell x 12 days. In the ED, COVID-19 positive. Admission CXR showing mild pulmonary vascular congestion and multifocal airspace consolidation. The admission CTA showed no evidence of pulmonary embolus in the main, lobar, or segmental pulmonary arteries and affirmed the multifocal bilateral airspace consolidation as above typical for multifocal pneumonia. She initially required high flow oxygen -She was s/p 1 unit convalescent plasma. Has completed IV dexamethasone 10 days and IV remdesivir 5 days. She completed course of antibiotics with Doxycycline and Rocephin -Patient was transitioned off high flow oxygen starting 09/29/2020 -10/01/2020: 2 step exercise done showed patient require 6 liter/min with exertion. Dr. Yañez, the previous hospitalist also has patient on trial of Lasix 40 mg daily -10/02/2020 updates Patient seen and examined at the bedside. She has been on nasal cannula oxygen between 4 to 5 liters/min while at rest. Patient does not report of any acute respiratory symptoms at this time. Patient denies chest pain or abdominal pain. denies dizziness. no nausea. no vomiting. A portable 1 view X ray completed on 10/02/2020 and in comparison to CXR on that Multifocal bilateral pulmonary airspace opacities similar to the preceding study (There are multifocal bilateral pulmonary airspace opacities consistent with a multifocal pneumonia. The findings remain similar to the prior study. There are no pleural effusions. ) (2) Hypokalemia: -her recent hypokalemia mostly due to diuretics -currently the serum potassium normal -will hold furosemide on 10/02/2020 and check BNP (3) HTN (hypertension): -Continue lisinopril (4) Diabetes mellitus type 2, diet-controlled: -Hgb A1c 6.1 on 09/13/2020 -On NovoLog sliding scale while hospitalized -since there is no current IV steroids, insulin on discharge will not be needed (5) Hereditary hemochromatosis: -Managed with intermittent phlebotomy as outpatient -follow the Hgb (6) Weakness: -patient has in the past declined to go to inpatient rehabilitation in past conversations -Continue PT/OT evaluations while in the hospital -Fall precaution (7) Elevated d-dimer: -admission elevated d-dimer of 1030 admission 09/13/2020 Dopplers of Bilateral lower extremities do not show no evidence of DVTs, admission CTA chest showed did not show evidence of pulmonary embolism (8) DVT prophylaxis: -Lovenox subcutaneous can be given as 40 mg daily since no prior evidence of DVT or PE despite initial elevated admission D-dimer CODE STATUS: Conditional Code, Do Not Intubate (but allows for other forms of ACLS) contact : Wyatt Toussaint : phone # [phone] Admission and Anticipated Discharge Date Admission Date: September 13, 2020 Subjective Patient seen and examined at the bedside. She has been on nasal cannula oxygen between 4 to 5 liters/min while at rest. Patient does not report of any acute respiratory symptoms at this time. Patient denies chest pain or abdominal pain. denies dizziness. no nausea. no vomiting. A portable 1 view X ray completed on 10/02/2020 and in comparison to CXR on 09/23/2020 that Multifocal bilateral pulmonary airspace opacities similar to the preceding study (There are multifocal bilateral pulmonary airspace opacities consistent with a multifocal pneumonia. The findings remain similar to the prior study. There are no pleural effusions. ) Review of Systems Review of Systems: All systems reviewed & are unremarkable except as noted in Subjective Physical Exam Constitutional: cooperative and comfortable Eyes: PERRL, conjunctivae normal, anicteric sclerae EOM intact bilaterally ENMT: external ear and nose normal, oropharynx normal Neck: normal visual inspection Respiratory: normal respiratory effort Cardiovascular: Rate/Rhythm: regular rate Gastrointestinal (Abdomen): normal bowel sounds, soft, nontender, no hepatosplenomegaly Neurologic: PERRL, EOMI, accommodation nl, no face palsy, no dysarthria CN's II-XI intact bilaterally Psychiatric: A+Ox3, euthymic affect Results & Data Results & Data ([facility]) Vital Signs (Past 12 Hours) Vital Signs Temp Pulse Pulse Resp BP BP Pulse Ox 10/02/20 15:00 81 10/02/20 14:38 36.6 C 79 18 105/69 92 10/02/20 11:44 36.3 C L 88 22 102/67 91 10/02/20 11:16 90 10/02/20 07:32 36.4 C L 81 18 112/69 92 10/02/20 07:00 78
[2020-10-03 06:26] LABS: Basophils # (auto) 0.02 K/uL (0-0.2); Basophils % (auto) 0.4 %; Eosinophils # (auto) 0.34 K/uL (0-0.5); Hematocrit (blood only) 39.8 % (37-47); Hemoglobin 13.4 g/dL (12.0-16.0); Immature Granulocytes # (auto) 0.01 K/uL (0.00-0.02); Immature Granulocytes % (auto) 0.2 %; Lymphocytes # (auto) 1.15 K/uL (1.2-3.4); Lymphocytes % (auto) 20.2 %; Mean Corpuscular Hemoglobin 33.6 pg (25-34); Mean Corpuscular Hgb Conc 33.7 g/dL (32-36); Mean Corpuscular Volume 99.7 fL (80-100); Monocytes # (auto) 0.64 K/uL (0.11-0.59); Monocytes % (auto) 11.2 %; Neutrophils # (auto) 3.54 K/uL (1.4-6.5); Platelet Count 121 K/uL (130-400); RDW Coefficient of Variation 13.9 % (11.5-14.5); RDW Standard Deviation 49.9 fL (36.4-46.3); Red Blood Count 3.99 M/uL (4.2-5.4)
[2020-10-03 07:00] LABS: Albumin Level 2.3 gm/dl (3.4-5.0); BUN Creatinine Ratio 22.1 (10-20); Creatinine Clr Calc Pharmacy 70.6 ml/min; Est GFR (African American) 102.3; Est GFR (Non-African American) 88.3; Potassium 3.7 mmol/L (3.5-5.1)
[2020-10-03 07:04] LABS: Albumin Globulin Ratio 0.5 (0.9-2); Bilirubin,Total 0.7 mg/dl (0.2-1); Globulin 4.3 gm/dl (2.5-4.0); Total Protein 6.6 gm/dl (6.4-8.2)
[2020-10-03] MEDS: ENOXAPARIN INJ 40 MG/0.4 ML SYR SQ SCH (08:13)
[2020-10-03] MEDS: POTASSIUM CHLORIDE CRTAB 20 MEQ TABCR PO SCH (08:14)
[2020-10-03] MEDS: CITALOPRAM 20 MG TAB PO SCH (08:14)
[2020-10-03] MEDS: INSULIN ASPART 100 UNITS/ML 3 ML PEN SC SCH ×4 (08:15→20:58)
[2020-10-03] MEDS: guaiFENesin 600 MG TABCR PO SCH ×2 (08:15→20:57)
--- NOTE | 2020-10-03 12:23 | Hospitalist Progress Note ---
Date of Service October 03, 2020 Assessment & Plan (1) Pneumonia due to COVID-19 virus: Acute respiratory failure with hypoxia due to Covid 19 pneumonia -On 09/13/2020, patient presented from home with reports of generalized weakness, fatigue, worsening shortness of breath, loss of taste and smell x 12 days. In the ED, COVID-19 positive. Admission CXR showing mild pulmonary vascular congestion and multifocal airspace consolidation. The admission CTA showed no evidence of pulmonary embolus in the main, lobar, or segmental pulmonary arteries and affirmed the multifocal bilateral airspace consolidation as above typical for multifocal pneumonia. She initially required high flow oxygen -She was s/p 1 unit convalescent plasma. Has completed IV dexamethasone 10 days and IV remdesivir 5 days. She completed course of antibiotics with Doxycycline and Rocephin -Patient was transitioned off high flow oxygen starting 09/29/2020 -10/01/2020: 2 step exercise done showed patient require 6 liter/min with exertion. Dr. Yañez, the previous hospitalist also has patient on trial of Lasix 40 mg daily -10/02/2020 updates Patient seen and examined at the bedside. She has been on nasal cannula oxygen between 4 to 5 liters/min while at rest. Patient does not report of any acute respiratory symptoms at this time. Patient denies chest pain or abdominal pain. denies dizziness. no nausea. no vomiting. A portable 1 view X ray completed on 10/02/2020 and in comparison to CXR on that Multifocal bilateral pulmonary airspace opacities similar to the preceding study (There are multifocal bilateral pulmonary airspace opacities consistent with a multifocal pneumonia. The findings remain similar to the prior study. There are no pleural effusions.) 10/03/2020 updates -Patient had 2 step test completed again and the results that "On room air at rest, SpO2 87%, HR 79. Titrated oxygen to 3L for SpO2 90%, HR 83. With ambulation, SpO2 85% on 3L, increased to 6L for SpO2 90%, HR 83. During recovery on 3L NC, SpO2 90%, HR 87." Patient agreeable to be evaluated by [facility] to see if patient would benefit from a stint of pulmonary rehabilitation (2) Hypokalemia: -her recent hypokalemia mostly due to diuretics -currently the serum potassium normal -hold furosemide on 10/02/2020, normal BNP on 10/03/2020, no further Lasix indicated (3) HTN (hypertension): -Continue lisinopril (4) Diabetes mellitus type 2, diet-controlled: -Hgb A1c 6.1 on 09/13/2020 -On NovoLog sliding scale while hospitalized -since there is no current IV steroids, insulin on discharge will not be needed (5) Hereditary hemochromatosis: -Managed with intermittent phlebotomy as outpatient -follow the Hgb (6) Weakness: -patient has in the past declined to go to inpatient rehabilitation in past conversations -Continue PT/OT evaluations while in the hospital -Fall precaution (7) Elevated d-dimer: -admission elevated d-dimer of 1030 admission 09/13/2020 Dopplers of Bilateral lower extremities do not show no evidence of DVTs, admission CTA chest showed did not show evidence of pulmonary embolism (8) DVT prophylaxis: -Lovenox subcutaneous can be given as 40 mg daily since no prior evidence of DVT or PE despite initial elevated admission D-dimer CODE STATUS: Conditional Code, Do Not Intubate (but allows for other forms of ACLS) contact : Wyatt Toussaint : phone # [phone] , patient's son Win Toussaint, Admission and Anticipated Discharge Date Admission Date: September 13, 2020 Subjective -Patient had 2 step test completed again and the results that "On room air at rest, SpO2 87%, HR 79. Titrated oxygen to 3L for SpO2 90%, HR 83. With ambu lation, SpO2 85% on 3L, increased to 6L for SpO2 90%, HR 83. During recovery on 3L NC, SpO2 90%, HR 87." Patient agreeable to be evaluated by [facility] to see if patient would benefit from a stint of pulmonary rehabilitation On exam at rest, patient denies acute shortness of breath while on nasal cannula oxygen, she denies any chest pain or abdomen pain. no dizziness. no headache. she denies other symptoms on review of systems patient would be agreeable to go to pulmonary rehabilitation center if these services accept her Review of Systems Review of Systems: All systems reviewed & are unremarkable except as noted in Subjective Physical Exam Constitutional: cooperative and comfortable Eyes: PERRL, conjunctivae normal, anicteric sclerae EOM intact bilaterally ENMT: external ear and nose normal, oropharynx normal Neck: normal visual inspection Respiratory: normal respiratory effort Cardiovascular: Rate/Rhythm: regular rate Gastrointestinal (Abdomen): normal bowel sounds, soft, nontender, no hepatosplenomegaly Musculoskeletal: Head/Neck/Chest: normocephalic and head atraumatic Neurologic: PERRL, EOMI, accommodation nl, no face palsy, no dysarthria CN's II-XI intact bilaterally Psychiatric: A+Ox3, euthymic affect Results & Data Results & Data ([facility]) Vital Signs (Past 12 Hours) Vital Signs Temp Pulse Pulse Pulse Pulse Pulse Pulse 10/03/20 10:54 36.6 C 83 91 H 83 90 76 87 10/03/20 07:42 36.6 C 72 10/03/20 02:43 36.5 C 74 Pulse Resp Resp Resp Resp Resp Resp 10/03/20 10:54 79 20 16 18 18 17 16 10/03/20 07:42 18 10/03/20 02:43 18 Resp BP Pulse Ox Pulse Ox Pulse Ox Pulse Ox Pulse Ox 10/03/20 10:54 16 113/72 90 90 85 L 90 87 L 10/03/20 07:42 136/74 95 10/03/20 02:43 110/67 98 Pulse Ox Pulse Ox 10/03/20 10:54 90 87 L 10/03/20 07:42 10/03/20 02:43
--- NOTE | 2020-10-04 08:49 | Hospitalist Progress Note ---
Date of Service October 04, 2020 Assessment & Plan (1) Pneumonia due to COVID-19 virus: Acute respiratory failure with hypoxia due to Covid 19 pneumonia -On 09/13/2020, patient presented from home with reports of generalized weakness, fatigue, worsening shortness of breath, loss of taste and smell x 12 days. In the ED, COVID-19 positive. Admission CXR showing mild pulmonary vascular congestion and multifocal airspace consolidation. The admission CTA showed no evidence of pulmonary embolus in the main, lobar, or segmental pulmonary arteries and affirmed the multifocal bilateral airspace consolidation as above typical for multifocal pneumonia. She initially required high flow oxygen -She was s/p 1 unit convalescent plasma. Has completed IV dexamethasone 10 days and IV remdesivir 5 days. She completed course of antibiotics with Doxycycline and Rocephin -Patient was transitioned off high flow oxygen starting 09/29/2020 -10/01/2020: 2 step exercise done showed patient require 6 liter/min with exertion. Dr. Yañez, the previous hospitalist also has patient on trial of Lasix 40 mg daily -10/02/2020 updates Patient seen and examined at the bedside. She has been on nasal cannula oxygen between 4 to 5 liters/min while at rest. Patient does not report of any acute respiratory symptoms at this time. Patient denies chest pain or abdominal pain. denies dizziness. no nausea. no vomiting. A portable 1 view X ray completed on 10/02/2020 and in comparison to CXR on that Multifocal bilateral pulmonary airspace opacities similar to the preceding study (There are multifocal bilateral pulmonary airspace opacities consistent with a multifocal pneumonia. The findings remain similar to the prior study. There are no pleural effusions.) 10/03/2020 Patient had 2 step test completed again and the results that "On room air at rest, SpO2 87%, HR 79. Titrated oxygen to 3L for SpO2 90%, HR 83. With ambulation, SpO2 85% on 3L, increased to 6L for SpO2 90%, HR 83. During recovery on 3L NC, SpO2 90%, HR 87." Patient agreeable to be evaluated by [facility] to see if patient would benefit from a stint of pulmonary rehabilitation but patient was denied this service. provider relations manager then coordinated with her family members for hospital discharge to home with home oxygen (3 liters/min at rest and 6 liters/min with ambulation) and with [facility] services with plans for discharge on 10/04/2020 10/04/2020: Patient [facility] and [facility] at [facility]. She continues to be breathing comfortably on nasal cannula oxygen. Patient does not have acute pain or other symptoms on review of systems. Affirmed with patient of the plans to discharge her today (2) Hypokalemia: -her recent hypokalemia mostly due to diuretics -currently the serum potassium normal -hold furosemide on 10/02/2020, normal BNP on 10/03/2020, no further Lasix indicated (3) HTN (hypertension): -Continue lisinopril (4) Diabetes mellitus type 2, diet-controlled: -Hgb A1c 6.1 on 09/13/2020 -On NovoLog sliding scale while hospitalized -since there is no current IV steroids, insulin on discharge will not be needed (5) Hereditary hemochromatosis: -Managed with intermittent phlebotomy as outpatient -Hemoglobin generally stable on this admission (6) Weakness: -patient has in the past declined to go to inpatient rehabilitation in past conversations -Continue PT/OT evaluations while in the hospital -Fall precaution (7) Elevated d-dimer: -admission elevated d-dimer of 1030 admission 09/13/2020 Dopplers of Bilateral lower extremities do not show no evidence of DVTs, admission CTA chest showed did not show evidence of pulmonary embolism (8) DVT prophylaxis: -Lovenox subcutaneous can be given as 40 mg daily since no prior evidence of DVT or PE despite initial elevated admission D-dimer while in the hospital CODE STATUS: Conditional Code, Do Not Intubate (but allows for other forms of ACLS) contact : Wyatt Toussaint : phone # [phone] , patient's son Win Toussaint, Admission and Anticipated Discharge Date Admission Date: September 13, 2020 Subjective 10/04/2020: Patient seen and examined at beside. She continues to be breathing comfortably on nasal cannula oxygen. Patient does not have acute pain or other symptoms on review of systems. Affirmed with patient of the plans to discharge her today Review of Systems Review of Systems: All systems reviewed & are unremarkable except as noted in Subjective Physical Exam Constitutional: cooperative and comfortable Eyes: PERRL, conjunctivae normal, anicteric sclerae EOM intact bilaterally ENMT: external ear and nose normal, oropharynx normal (on nasal cannula oxygen ) Neck: normal visual inspection Respiratory: normal respiratory effort Cardiovascular: Rate/Rhythm: regular rate Gastrointestinal (Abdomen): normal bowel sounds, soft, nontender, no hepatosplenomegaly Musculoskeletal: Head/Neck/Chest: normocephalic and head atraumatic Neurologic: PERRL, EOMI, accommodation nl, no face palsy, no dysarthria CN's II-XI intact bilaterally Psychiatric: A+Ox3, euthymic affect Results & Data Results & Data ([facility]) Vital Signs (Past 12 Hours) Vital Signs Temp Pulse Pulse Resp BP BP Pulse Ox 10/04/20 07:40 36.8 C 75 18 129/76 95 10/04/20 03:40 36.3 C L 75 18 122/74 96 10/03/20 23:58 36.7 C 65 20 104/63 97
--- NOTE | 2020-10-04 09:04 | Discharge Summary ---
Date of Service October 04, 2020 Admission HPI Per Admitting Provider 70-year-old female with PMH diet-controlled DM type II, hereditary hemochromatosis, HLD, remote history of ruptured cerebral aneurysm s/p clipping, and other problems listed below who presents to the ED for evaluation of shortness of breath and generalized weakness. Patient reports that she has been sick for about the past 12 days. Symptoms have been progressively getting worse. She reports running low-grade fevers. She has had a very poor appetite with loss of sense and smell. No nausea, vomiting, diarrhea. She denies cough and sputum production. No chest pain or palpitations. Denies lightheadedness, dizziness, diaphoresis, syncopal events. No urinary symptoms. In the ED, patient has tested positive for COVID-19. She is currently requiring 100% high flow oxygen to maintain saturation of 90%. CXR shows mild pulmonary vascular congestion and multifocal airspace consolidation. D-dimer elevated, CTA chest pending. Patient was given dexamethasone 6 mg IV and IVF. Principal Diagnosis Acute respiratory failure with hypoxia due to Covid-19 pneumonia Elevated d-dimer on admission Hypokalemia (resolved) HTN (hypertension) Diabetes mellitus type 2, diet-controlled Discharge Exam Constitutional cooperative and comfortable Eyes PERRL, conjunctivae normal, anicteric sclerae EOM intact bilaterally ENMT external ear and nose normal, oropharynx normal (on nasal cannula oxygen ) Neck normal visual inspection Respiratory normal respiratory effort Cardiovascular Rate/Rhythm: regular rate Gastrointestinal (Abdomen) normal bowel sounds, soft, nontender, no hepatosplenomegaly Musculoskeletal Head/Neck/Chest: normocephalic and head atraumatic Neurologic PERRL, EOMI, accommodation nl, no face palsy, no dysarthria CN's II-XI intact bilaterally Psychiatric A+Ox3, euthymic affect Discharge Data Allergies Allergy/AdvReac Type Severity Reaction Status Date / Time shellfish derived Allergy Intermediate ithcing Verified 09/13/20 19:32 Penicillins Allergy Mild RASH, Verified 09/13/20 19:32 pruritis Consultations 09/13/20 18:09 ED Decision to Admit Stat 09/13/20 21:45 Consult Pulmonology Routine Ordered Studies 09/13/20 17:25 CT angio chest PE protocol Stat 09/13/20 21:45 US venous doppler LE Routine Hospital Course (1) Pneumonia due to COVID-19 virus: Acute respiratory failure with hypoxia due to Covid 19 pneumonia -On 09/13/2020, patient presented from home with reports of generalized weakness, fatigue, worsening shortness of breath, loss of taste and smell x 12 days. In the ED, COVID-19 positive. Admission CXR showing mild pulmonary vascular congestion and multifocal airspace consolidation. The admission CTA showed no evidence of pulmonary embolus in the main, lobar, or segmental pulmona ry arteries and affirmed the multifocal bilateral airspace consolidation as above typical for multifocal pneumonia. She initially required high flow oxygen -She was s/p 1 unit convalescent plasma. Has completed IV dexamethasone 10 days and IV remdesivir 5 days. She completed course of antibiotics with Doxycycline and Rocephin -Patient was transitioned off high flow oxygen starting 09/29/2020 -10/01/2020: 2 step exercise done showed patient require 6 liter/min with exertion. Dr. Yañez, the previous hospitalist also has patient on trial of Lasix 40 mg daily -10/02/2020 updates Patient seen and examined at the bedside. She has been on nasal cannula oxygen between 4 to 5 liters/min while at rest. Patient does not report of any acute respiratory symptoms at this time. Patient denies chest pain or abdominal pain. denies dizziness. no nausea. no vomiting. A portable 1 view X ray completed on 10/02/2020 and in comparison to CXR on 09/23/2020 that Multifocal bilateral pulmonary airspace opacities similar to the preceding study (There are multifocal bilateral pulmonary airspace opacities consistent with a multifocal pneumonia. The findings remain similar to the prior study. There are no pleural effusions.) 10/03/2020 Patient had 2 step test completed again and the results that "On room air at rest, SpO2 87%, HR 79. Titrated oxygen to 3L for SpO2 90%, HR 83. With ambulation, SpO2 85% on 3L, increased to 6L for SpO2 90%, HR 83. During recovery on 3L NC, SpO2 90%, HR 87." Patient agreeable to be evaluated by [facility] to see if patient would benefit from a stint of pulmonary rehabilitation but patient was denied this service. order manager then coordinated with her family members for hospital discharge to home with home oxygen (3 liters/min at rest and 6 liters/min with ambulation) and with [facility] Home Health services with plans for discharge on 10/04/2020 10/04/2020: Patient seen and examined at [facility]. She continues to be breathing comfortably on nasal cannula oxygen. Patient does not have acute pain or other symptoms on review of systems. Affirmed with patient of the plans to discharge her today (2) Hypokalemia: -her recent hypokalemia mostly due to diuretics -currently the serum potassium normal -hold furosemide on 10/02/2020, normal BNP on 10/03/2020, no further Lasix indicated (3) HTN (hypertension): -Continue lisinopril (4) Diabetes mellitus type 2, diet-controlled: -Hgb A1c 6.1 on 09/13/2020 -On NovoLog sliding scale while hospitalized -since there is no current IV steroids, insulin on discharge will not be needed (5) Hereditary hemochromatosis: -Managed with intermittent phlebotomy as outpatient -Hemoglobin generally stable on this admission (6) Weakness: -patient has in the past declined to go to inpatient rehabilitation in [facility] -Continue PT/OT evaluations while in the hospital -Fall precaution (7) Elevated d-dimer: -admission elevated d-dimer of 1030 admission 09/13/2020 Dopplers of Bilateral lower extremities do not show no evidence of DVTs, admission CTA chest showed did not show evidence of pulmonary embolism (8) DVT prophylaxis: -Lovenox subcutaneous can be given as 40 mg daily since no prior evidence of DVT or PE despite initial elevated admission D-dimer while in the hospital CODE STATUS: Conditional Code, Do Not Intubate (but allows for other forms of ACLS) contact : Wyatt Toussaint : phone # [phone] , patient's son Win Toussaint, Total Time Total Time Spent Total Time Spent (In Minutes): 40 minutes Total Time Includes: Examination of the Patient, Discharge Planning, Medication Reconciliation and Communication With Other Providers Discharge Plan Discharge Items Patient Disposition: Home - Home Health Services Reason For Visit: COVID Discharge Diagnosis: Acute respiratory failure with hypoxia due to Covid-19 pneumonia Elevated d-dimer on admission Hypokalemia (resolved) HTN (hypertension) Diabetes mellitus type 2, diet-controlled Condition on Discharge: Good Activity: Per Instructions section Lifting: Gradually increase as tolerated Bathing: No limitations Exercise/Sports: Gradually increase as tolerated Weightbearing: Full weightbearing Non-emergency contact: Primary Care Provider Call non-emergency contact if: you have any medication questions Follow-up/Referrals: Kelechi Martino MD [Primary Care Provider] - (Date & Time 10/04/2020 3:20 PM Provider Kelechi Martino MD Department General Internal Medicine [facility] PLEASE NOTE THIS IS A TELEPHONE APPOINTMENT. YOUR PHYSICIAN WILL CALL YOU AT THE APPOINTED TIME. IF YOU HAVE ANY QUESTIONS, PLEASE CALL ) Diet: Carb Consistent or DM2 Addtl Attending Provider Instructions: discharge to home with home oxygen (3 liters/min at rest and 6 liters/min with ambulation) and with [facility] Home Health services Patient should wear mask when in public or group gatherings primary care doctor appointment 10/14/2020 12:00 PM Provider Kelechi Martino MD Department General Internal Medicine [facility] Pending Studies at Discharge: No Stand-Alone Forms: My [facility] [employer], Smoking Cessation Medications and DC Order Prescriptions: Continued lisinopril 20 mg tablet 20 mg PO DAILY RF: 0 citalopram 20 mg tablet 20 mg PO DAILY RF: 0 Discharge Orders: Discharge Order (Routine); Ordered 10/04/20 Ordered By: Christiano Kline/Other Patient Handouts: COVID-19 Home Care Admission Data Admit Date/Time: 09/13/20 19:22 Attending Provider: Christiano Hutchinson Admit Provider: Rodrick Hernandez Primary Care Provider: Kelechi Martino Other Providers: Rodrick Hernandez ; Dalia Schmidt ; John Yañez ; [facility] ; Jagruti Cain ; [facility],Home Healthcare
[2020-10-04] MEDS: guaiFENesin 600 MG TABCR PO SCH (09:23)
[2020-10-04] MEDS: INSULIN ASPART 100 UNITS/ML 3 ML PEN SC SCH (09:23)
[2020-10-04] MEDS: POTASSIUM CHLORIDE CRTAB 20 MEQ TABCR PO SCH (09:23)
[2020-10-04] MEDS: CITALOPRAM 20 MG TAB PO SCH (09:23)
[2020-10-04] MEDS: ENOXAPARIN INJ 40 MG/0.4 ML SYR SQ SCH (09:25)
== END 2020-10-04 11:47 | disposition home health service (06) | DRG 177 ==
LOC: ED 16:21 → SUATTDRO 19:22 → 2S 19:22